=== PATIENT | male | born 1985 | race Caucasian/White ===

== ENCOUNTER 2016-08-15 18:33 | Emergency (ER) | payer OTHER ==
[~2016-08-15] VITALS: Ht 177.8 cm; Wt 125.5 kg
[~2016-08-15 18:33] MED LIST: ALBU18HF INHALATION; ARIP5TAB7 PO; BECL8.7A INH; BENA10TA48 PO; DIPH25CA6 PO; DIVA-16 PO; FAMO20TA18 PO; GLIP-95 PO; IBUP-1542 PO; MTF1000T PO; MUPI22OI2 TOP; PRED20TA PO; SIMV20TA97 PO; [UNRECOGNIZED DRUG - CODE] MC
[2016-08-15 18:55] VITALS: Ht 177.8 cm; Wt 125.5 kg
== END 2016-08-16 01:39 | disposition left against medical advice (07) ==
LOC: E/R 18:33
DX: Z53.21 Procedure and treatment not carried out due to patient leaving prior to being seen by health care provider (principal)
CPT/HCPCS: 82962

== ENCOUNTER 2016-08-23 16:21 | Emergency (ER) | payer OTHER ==
[~2016-08-23] VITALS: Ht 172.7 cm; Wt 100.0 kg
[2016-08-23] MEDS ORDERED: ALBU18HF INHALATION (16:25)
[2016-08-23 16:57] VITALS: Ht 172.7 cm; Wt 100.0 kg
--- NOTE | 2016-08-23 17:22 | ERD ---
ER Documentation Chief Complaint Date/Time DATE: 08/23/16 TIME: 17:20 Chief Complaint COUGH STARTING TODAY AND "FEELING BAD" HPI Patient is a 31-year-old male with diabetes and asthma who presents saying that he needs an inhaler. The patient says "I need a prescription for an inhaler". He said that he ran out of his inhaler yesterday. He has shortness of breath and diarrhea. He denies fevers. He was brought in by ambulance. Upon review of old medical records the patient has multiple visits to the ER for various complaints. He is well-known to myself and to our staff for psychiatric complaints. He does not currently have a primary doctor. ROS All systems reviewed and are negative except as per history of present illness. Medications Home Meds Active Scripts Albuterol Sulfate* (Ventolin HFA*) 18 Gm Hfa.aer.ad, 2 PUFF INHALATION Q4H, #1 INHALER Prov:LOVE ROMERO MD 08/23/16 Albuterol Sulfate* (Ventolin HFA*) 18 Gm Hfa.aer.ad, 2 PUFF INHALATION Q4H, #1 INHALER Prov:JENNIFER ELMORE 07/25/16 Prednisone* (Prednisone*) 20 Mg Tab, 40 MG PO DAILY for 4 Days, TAB Prov:JENNIFER ELMORE 07/25/16 Aripiprazole* (Abilify*) 5 Mg Tab, 5 MG PO DAILY, #10 TAB Prov:MIKE HUERTA DO 07/10/16 Mupirocin* (Bactroban*) 2% -22 Gram Oint...g., 1 APPLIC TOP BID for 7 Days, EA Prov:JERRY INGRAM PA-C 07/08/16 Mupirocin* (Bactroban*) 2% -22 Gram Oint...g., 1 APPLIC TOP BID for 7 Days, #1 TUB Prov:MARIEL COURTNEY MD 03/04/16 Ibuprofen* (Ibuprofen*) 600 Mg Tablet, 600 MG PO Q8 for PAIN AND/OR INFLAMMATION , #30 TAB Prov:MARIEL COURTNEY MD 03/04/16 Clotrimazole (Clotrimazole Powder) 100 Gm Powder, 100 GM MC qday for 7 Days, EA Prov:NOAH GERWAL DO 02/26/16 Reported Medications Beclomethasone Dip* (Qvar 40*) 7.3 Gm Inha, 1 PUFF INH BID, #1 INHALER 02/27/16 Diphenhydramine Hcl* (Diphenhydramine Hcl*) 25 Mg Capsule, 25 MG PO BID Y for ITCHING, CAP 02/27/16 Divalproex Sodium* (Divalproex Sodium*) 500 Mg Tablet.dr, 500 MG PO TID, #90 TAB 02/27/16 Simvastatin* (Zocor*) 20 Mg Tablet, 20 MG PO QHS, #30 TAB 02/27/16 Glipizide* (Glipizide*) 10 Mg Tablet, 10 MG PO DAILY, TAB 02/27/16 Famotidine* (Famotidine*) 20 Mg Tablet, 20 MG PO DAILY, #30 TAB 02/27/16 Benazepril Hcl* (Benazepril Hcl*) 10 Mg Tablet, 10 MG PO DAILY, #30 TAB 02/27/16 Metformin* (Glucophage*) 1,000 Mg Tablet, 1000 MG PO QID, #60 TAB 01/04/16 Allergies Allergies: Coded Allergies: No Known Allergies (Verified Allergy, Mild, 02/27/16) PMhx/Soc History of Surgery: No Anesthesia Reaction: No Hx Neurological Disorder: No Hx Respiratory Disorders: Yes (Asthma) Hx Cardiac Disorders: No Hx Psychiatric Problems: Yes (Schizophrenia ) Hx Miscellaneous Medical Probl: Yes (DM) Hx Alcohol Use: No Hx Substance Use: No Hx Tobacco Use: No Smoking Status: Never smoker FmHx Family History: diabetes Physical Exam Vitals Vital Signs Date Time Temp Pulse Resp B/P Pulse Ox O2 Delivery O2 Flow Rate FiO2 08/23/16 16:57 98.8 116 16 138/88 100 Physical Exam Const: No acute distress Head: Atraumatic Eyes: Normal Conjunctiva ENT: Normal External Ears, Nose and Mouth. Neck: Full range of motion..~ No meningismus. Resp: Clear to auscultation bilaterally, no retractions or accessory muscle use Cardio: Tachycardic rate without murmur Abd: Soft, non tender, non distended. Normal bowel sounds Skin: No petechiae or rashes Back: No midline or flank tenderness Ext: No cyanosis, or edema Neur: Awake and alert Psych: Normal Mood and Affect Results 24 hrs Laboratory Tests Test 08/23/16 16:53 Bedside Glucose 381mg/dL Procedures/MDM Smoking Cessation Therapy: Pt. was lectured for greater than 3 minutes on the health risks of continued smoking and the benefits of cessation. Patient is a 31-year-old male who presents with asthma exacerbation. I do not believe he requires further workup or admission the hospital at this time. He is in no respiratory distress. The patient will be given a prescription for an inhaler. The patient did have an Accu-Chek which showed a sugar of greater than 300 but this point I doubt diabetic ketoacidosis or other serious cause of his hyperglycemia. He has metformin and insulin at home and I told him that he needs to take these as directed by his doctor. He can return for any worsening symptoms. The patient understands the plan is okay for discharge at this time. From a psychiatric standpoint the patient appears stable and is having no suicidal or homicidal ideation. Departure Diagnosis: Primary Impression: Hyperglycemia Additional Impression: Asthma Asthma severity: unspecified severity Asthma complication type: uncomplicated Qualified Code: J45.909 - Uncomplicated asthma, unspecified asthma severity Condition: Fair Patient Instructions: Asthma, Acute (Adult) Referrals: [facility] YOU HAVE RECEIVED A MEDICAL SCREENING EXAM AND THE RESULTS INDICATE THAT YOU DO NOT HAVE A CONDITION THAT REQUIRES URGENT TREATMENT IN THE EMERGENCY DEPARTMENT. FURTHER EVALUATION AND TREATMENT OF YOUR CONDITION CAN WAIT UNTIL YOU ARE SEEN IN YOUR DOCTORS OFFICE WITHIN THE NEXT 1-2 DAYS. IT IS YOUR RESPONSIBILITY TO MAKE AN APPOINTMENT FOR FOLOW-UP CARE. IF YOU HAVE A PRIMARY DOCTOR --you should call your primary doctor and schedule an appointment IF YOU DO NOT HAVE A PRIMARY DOCTOR YOU CAN CALL OUR PHYSICIAN REFERRAL HOTLINE AT IF YOU CAN NOT AFFORD TO SEE A PHYSICIAN YOU CAN CHOSE FROM THE FOLLOWING [facility] [address] [place] [facility] [address] [facility]. [facility] [address] [facility] [address] [facility] [address] [place] [address]. [facility]. [address] Additional Instructions: Call your primary care doctor TOMORROW for an appointment during the next 1-2 days.See the doctor sooner or return here if your condition worsens before your appointment time. LOVE ROMERO MD Aug 23, 2016 17:22
== END 2016-08-23 17:15 | disposition home or self-care (01) ==
LOC: E/R 16:21
DX: E11.65 Type 2 diabetes mellitus with hyperglycemia (principal); J45.901 Unspecified asthma with (acute) exacerbation; Z79.84 Long term (current) use of oral hypoglycemic drugs
CPT/HCPCS: 82962; Z7502; 99281

== ENCOUNTER 2016-08-27 16:20 | Emergency (ER) | payer OTHER ==
[~2016-08-27] VITALS: Ht 175.3 cm; Wt 104.5 kg
[~2016-08-27 16:20] MED LIST changes: -ARIP5TAB7 PO; -BECL8.7A INH; -DIPH25CA6 PO; -FAMO20TA18 PO; -MUPI22OI2 TOP; -PRED20TA PO; +SIMV20TA PO; -SIMV20TA97 PO; -[UNRECOGNIZED DRUG - CODE] MC
[2016-08-27 16:38] VITALS: Ht 175.3 cm; Wt 104.5 kg
[2016-08-27 16:58] LABS: BASOPHILS % 0.5 % (0.0-2.0); EOSINOPHILS # 0.3 10^3/ul (0.0-0.5); EOSINOPHILS % 3.3 % (0.0-7.0); HEMATOCRIT 47.4 % (42.0-52.0); LYMPHOCYTES # 2.6 10^3/ul (0.8-2.9); LYMPHOCYTES % 30.7 % (15.0-51.0); MEAN CORPUSCULAR HGB CONC 33.7 g/dl (32.0-37.0); MEAN CORPUSCULAR VOLUME 83.3 fl (82.0-101.0); MEAN PLATELET VOLUME 9.6 fl (7.4-10.4); MONOCYTE # 0.5 10^3/ul (0.3-0.9); MONOCYTES % 5.9 % (0.0-11.0); NEUTROPHILS % 59.6 % (39.0-77.0); PLATELET COUNT 171 10^3/UL (140-440); RED BLOOD COUNT 5.69 10^6/ul (4.70-6.10); RED CELL DISTRIBUTION WIDTH 13.1 % (11.5-14.5); UNCORRECTED WBC 8.4 10^3/ul (4.8-10.8); WHITE BLOOD COUNT 8.4 10^3/ul (4.8-10.8)
[2016-08-27 16:59] LABS: CONDITION 1
[2016-08-27 17:02] LABS: ADD UMIC NO; ALBUMIN 4.4 g/dl (3.3-4.9); CHLORIDE 96 mmol/L (97-110); SODIUM 136 mmol/L (135-144); URINE BILIRUBIN (Dip) NEGATIVE (NEGATIVE); URINE BLOOD (Dip) NEGATIVE (NEGATIVE); URINE COLOR LT. YELLOW (YELLOW); URINE GLUCOSE (Dip) >=1000 % (NEGATIVE); URINE KETONES (Dip) TRACE (NEGATIVE); URINE LEUKOCYTE ESTERASE (Dip) NEGATIVE (NEGATIVE); URINE NITRITE (Dip) NEGATIVE (NEGATIVE); URINE TOTAL PROTEIN (Dip) NEGATIVE (NEGATIVE); URINE UROBILINOGEN (Dip) 0.2 E.U./dL (0.1-1.0)
[2016-08-27 17:03] LABS: POTASSIUM 4.1 mmol/L (3.5-5.1)
[2016-08-27 17:04] LABS: CREATININE 0.68 mg/dl (0.61-1.24)
[2016-08-27 17:05] LABS: ALANINE AMINOTRANSFERASE 43 IU/L (13-69); ALBUMIN/GLOBULIN RATIO 1.25; ALKALINE PHOSPHATASE 160 IU/L (42-121); ANION GAP 19 (8-16); ASPARTATE AMINO TRANSFERASE 15 IU/L (15-46); BILIRUBIN,INDIRECT 0.3 mg/dl (0-1.1); BILIRUBIN,TOTAL 0.3 mg/dl (0.2-1.3); BLOOD UREA NITROGEN 17 mg/dl (7-20); CALCIUM 9.8 mg/dl (8.4-10.2); CARBON DIOXIDE 25 mmol/L (21-31); GLUCOSE 363 mg/dl (70-220); TOTAL PROTEIN 7.9 g/dl (6.1-8.1)
[2016-08-27 17:06] LABS: ACETAMINOPHEN < 10.0 ug/ml (10.0-30.0); ETHANOL < 10.0 mg/dl; SALICYLATE < 1.0 mg/dl (5.0-30.0)
[2016-08-27 17:12] LABS: BARBITURATES Negative (NEGATIVE); BENZODIAZEPINES Negative (NEGATIVE)
[2016-08-27 17:16] LABS: CANNABINOIDS Negative (NEGATIVE); COCAINE Negative (NEGATIVE)
[2016-08-27 17:17] LABS: OPIATES Negative (NEGATIVE)
--- NOTE | 2016-08-27 21:21 | PSY ---
Date/Time of Note Date/Time of Note DATE: 08/27/16 TIME: 21:08 Psychiatric Subjective Eval Consent Pt consented to telemedicine: Yes Subjective Evaluation Patient location: emergency Chief Complaint: SI Reason for consult: SI History of present illness This is a 31 year old male with a history of polysubstance abuse and alcohol abuse. He has had multiple ED presentations for a variety of reasons, both medical as well as psychiatric. He presents with suicidal ideation with intent and plan, which is to cut himself with a knife. He denies hallucinations or delusions. Although he presents stating that he is suicidal and is seeking inpatient treatment, it appears to me that the patient may be exaggerating his symptoms so that he could be sent to a board and care, as he is having problems with his living situation at home. This may be related to his poor adherence to psychiatric treatment as well as with sobriety. He denies any prior attempt. He reports that his mood often is situational. He does not have a manager case. Medical history Problems Medical Problems: (1) Abrasion Status: Acute (2) Acute psychosis Status: Acute (3) Acute psychosis Status: Acute (4) Acute psychosis Status: Acute (5) Anxiety Status: Acute (6) Asthma Status: Acute (7) Asthma Status: Acute (8) Asthma Status: Acute (9) Balanitis Status: Acute (10) Balanitis Status: Acute (11) Chest wall pain Status: Acute (12) Diabetes Status: Acute (13) Disorder of male genital organs Status: Acute (14) Dystonic drug reaction Status: Acute (15) Encephalopathy Status: Acute (16) Encounter for medication refill Status: Acute (17) Exhibitionism Status: Acute (18) Genital warts Status: Acute (19) Hyperglycemia Status: Acute (20) Hyperglycemia Status: Acute (21) Hyperglycemia Status: Acute (22) Hyperglycemia due to type 2 diabetes mellitus Status: Acute (23) Hyperglycemia without ketosis Status: Acute (24) Influenza Status: Acute (25) Influenza-like symptoms Status: Acute (26) Multiple complaints Status: Acute (27) Pain of male genitalia Status: Acute (28) Pain of male genitalia Status: Acute (29) Patient left after triage Status: Acute (30) Patient left without being seen Status: Acute (31) Patient left without being seen Status: Acute (32) Penile lesion Status: Acute (33) Penile rash Status: Acute (34) Psychological disorder Status: Acute (35) Psychoses Status: Acute (36) Schizophrenia Status: Acute (37) Tension headache Status: Acute (38) Upper respiratory infection Status: Acute (39) URI (upper respiratory infection) Status: Acute (40) Urinary retention Status: Acute Allergies: Coded Allergies: No Known Allergies (Verified Allergy, Mild, 08/23/16) Substance Abuse Substance use: other (The patient has "court mandated" treatment. I am not sure what they are. They may be related to his problems with substance abuse. ) Substance abuse history: Yes Prior substance abuse treatmen: Yes Social History Marital status: single Level of education: 10th Grade DPA/Conservatorship: No Occupation/Snf: disabled Psychiatric Objective Eval Review of Systems: Review of Systems: Not Applicable Constitutional: Normal Eyes: Normal ENT: Normal Neck: Normal Respiratory: Normal Chest/Breast: Normal Cardiovascular: Normal GI: Normal Genitourinary: Normal Skin: Normal Lymphatic: Normal Musculoskeletal: Normal Neurological: Normal Mental Status Examination: Appearance: Groomed Eye Contact: Fair Psychomotor Activity: Normal Behavior: Guarded Speech: Clear AFFECT: Flat, Depressed Mood: Depressed, Anxious, Irritable, Other (Labile) Though Process: Linear Thought Content: Normal Suicidal: Yes On 72 hour hold: No Orientation: x4 Cognition: Alert Insight: Intact Judgement: Intact Attention Span: Intact Laboratory Results Laboratory Tests Test 08/27/16 16:30 08/27/16 16:39 Urine Amphetamines Screen Negative Urine Barbiturates Negative Urine Benzodiazepines Screen Negative Urine Cannabinoids Negative Urine Cocaine Screen Negative Urine Opiates Screen Negative Acetaminophen Level < 10.0ug/ml Alanine Aminotransferase (ALT/SGPT) 43IU/L Albumin 4.4g/dl Albumin/Globulin Ratio 1.25 Alkaline Phosphatase 160IU/L Anion Gap 19 Aspartate Amino Transf (AST/SGOT) 15IU/L Basophils # 0.010^3/ul Basophils % 0.5% Blood Morphology Comment Blood Urea Nitrogen 17mg/dl Calcium Level 9.8mg/dl Carbon Dioxide Level 25mmol/L Chloride Level 96mmol/L Creatinine 0.68mg/dl Direct Bilirubin 0.00mg/dl Eosinophils # 0.310^3/ul Eosinophils % 3.3% Ethyl Alcohol Level < 10.0mg/dl Globulin 3.50g/dl Glucose Level 363mg/dl Hematocrit 47.4% Hemoglobin 16.0g/dl Indirect Bilirubin 0.3mg/dl Lymphocytes # 2.610^3/ul Lymphocytes % 30.7% Mean Corpuscular Hemoglobin 28.0pg Mean Corpuscular Hemoglobin Concent 33.7g/dl Mean Corpuscular Volume 83.3fl Mean Platelet Volume 9.6fl Monocytes # 0.510^3/ul Monocytes % 5.9% Neutrophils # 5.010^3/ul Neutrophils % 59.6% Nucleated Red Blood Cells # 0.010^3/ul Nucleated Red Blood Cells % 0.0/100WBC Platelet Count 25591^3/UL Potassium Level 4.1mmol/L Red Blood Count 5.6910^6/ul Red Cell Distribution Width 13.1% Salicylates Level < 1.0mg/dl Sodium Level 136mmol/L Total Bilirubin 0.3mg/dl Total Protein 7.9g/dl Urine Bilirubin NEGATIVE Urine Clarity CLEAR Urine Color LT. YELLOW Urine Glucose >=1000% Urine Hemoglobin NEGATIVE Urine Ketones TRACE Urine Leukocyte Esterase NEGATIVE Urine Nitrite NEGATIVE Urine Specific [place] 1.010 Urine Total Protein NEGATIVE Urine Urobilinogen 0.2 E.U./dL Urine pH 6.0 White Blood Count 8.410^3/ul Assessment and Plan Assessment/Diagnosis [place] I: F43.21 Adjustment disorder with mixed emotional features. F15.20 Methamphetamine dependence (by history) F10.20 Alcohol dependence. 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 He has expressed intent as well as a plan. He would benefit from having case management to develop a behavioral program to reduce the frequency of ED visits. Further, the family would benefit from family therapy as well as education in motivational interviewing techniques to assist the patient's lack of insight regarding his problems with substance abuse. He should be admitted voluntarily. SANTOS GRAHAM MD Aug 27, 2016 21:19
[2016-08-27] MEDS ORDERED: INSULIN LISPRO 100 UNIT/ML VIAL SC STA (23:36)
--- NOTE | 2016-08-27 23:44 | ERA ---
ER Documentation Chief Complaint Date/Time DATE: 08/27/16 TIME: 23:39 Chief Complaint SI HPI This 31-year-old male states that he has suicidal also without a specific plan. Will not give a reason why and states that he would like to be admitted to specific facilities familiar with. He last filled taking history and states that we have to admit him because he said he was suicidal. He denies any physical pain or symptoms currently. ROS All systems reviewed and are negative except as per history of present illness. Medications Home Meds Active Scripts Albuterol Sulfate* (Ventolin HFA*) 18 Gm Hfa.aer.ad, 2 PUFF INHALATION Q4H, #1 INHALER Prov:LOVE ROMERO MD 08/23/16 Ibuprofen* (Ibuprofen*) 600 Mg Tablet, 600 MG PO Q8 for PAIN AND/OR INFLAMMATION , #30 TAB Prov:MARIEL COURTNEY MD 03/04/16 Reported Medications Divalproex Sodium* (Divalproex Sodium*) 500 Mg Tablet.dr, 500 MG PO TID, #90 TAB 02/27/16 Simvastatin* (Zocor*) 20 Mg Tablet, 20 MG PO QHS, #30 TAB 02/27/16 Glipizide* (Glipizide*) 10 Mg Tablet, 10 MG PO DAILY, TAB 02/27/16 Benazepril Hcl* (Benazepril Hcl*) 10 Mg Tablet, 10 MG PO DAILY, #30 TAB 02/27/16 Metformin* (Glucophage*) 1,000 Mg Tablet, 1000 MG PO QID, #60 TAB 01/04/16 Discontinued Reported Medications Beclomethasone Dip* (Qvar 40*) 7.3 Gm Inha, 1 PUFF INH BID, #1 INHALER 02/27/16 Diphenhydramine Hcl* (Diphenhydramine Hcl*) 25 Mg Capsule, 25 MG PO BID Y for ITCHING, CAP 02/27/16 Famotidine* (Famotidine*) 20 Mg Tablet, 20 MG PO DAILY, #30 TAB 02/27/16 Discontinued Scripts Albuterol Sulfate* (Ventolin HFA*) 18 Gm Hfa.aer.ad, 2 PUFF INHALATION Q4H, #1 INHALER Prov:JENNIFER ELMORE 07/25/16 Prednisone* (Prednisone*) 20 Mg Tab, 40 MG PO DAILY for 4 Days, TAB Prov:JENNIFER ELMORESapna 07/25/16 Aripiprazole* (Abilify*) 5 Mg Tab, 5 MG PO DAILY, #10 TAB Prov:MIKE HUERTA DO 07/10/16 Mupirocin* (Bactroban*) 2% -22 Gram Oint...g., 1 APPLIC TOP BID for 7 Days, EA Prov:JERRY INGRAM PA-C 07/08/16 Mupirocin* (Bactroban*) 2% -22 Gram Oint...g., 1 APPLIC TOP BID for 7 Days, #1 TUB Prov:MARIEL COURTNEY MD 03/04/16 Clotrimazole (Clotrimazole Powder) 100 Gm Powder, 100 GM MC qday for 7 Days, EA Prov:NOAH GREWAL DO 02/26/16 Allergies Allergies: Coded Allergies: No Known Allergies (Verified Allergy, Mild, 08/23/16) PMhx/Soc Medical and Surgical Hx: pt denies Surgical Hx History of Surgery: No Anesthesia Reaction: No Hx Neurological Disorder: No Hx Respiratory Disorders: Yes (Asthma) Hx Cardiac Disorders: No Hx Psychiatric Problems: Yes (Schizophrenia ) Hx Miscellaneous Medical Probl: Yes (DM) Hx Alcohol Use: No Hx Substance Use: No Hx Tobacco Use: No Smoking Status: Never smoker Physical Exam Vitals Vital Signs Date Time Temp Pulse Resp B/P Pulse Ox O2 Delivery O2 Flow Rate FiO2 08/27/16 16:38 98.0 66 18 140/80 100 Physical Exam Const: [] No distress, obese Head: Atraumatic Eyes: Normal Conjunctiva ENT: Normal External Ears, Nose and Mouth. Neck: Full range of motion..~ No meningismus. Resp: Clear to auscultation bilaterally Cardio: Regular rate and rhythm, no murmurs Abd: Soft, non tender, non distended. Normal bowel sounds Skin: No petechiae or rashes Back: No midline or flank tenderness Ext: No cyanosis, or edema Neur: Awake and alert and oriented 3, no focal deficits Psych: Normal Mood and Affect Result Diagram: 08/27/16 1639 08/27/16 1639 Results 24 hrs Laboratory Tests Test 08/27/16 16:30 08/27/16 16:39 Urine Amphetamines Screen Negative Urine Barbiturates Negative Urine Benzodiazepines Screen Negative Urine Cannabinoids Negative Urine Cocaine Screen Negative Urine Opiates Screen Negative Acetaminophen Level < 10.0ug/ml Alanine Aminotransferase (ALT/SGPT) 43IU/L Albumin 4.4g/dl Albumin/Globulin Ratio 1.25 Alkaline Phosphatase 160IU/L Anion Gap 19 Aspartate Amino Transf (AST/SGOT) 15IU/L Basophils # 0.010^3/ul Basophils % 0.5% Blood Morphology Comment Blood Urea Nitrogen 17mg/dl Calcium Level 9.8mg/dl Carbon Dioxide Level 25mmol/L Chloride Level 96mmol/L Creatinine 0.68mg/dl Direct Bilirubin 0.00mg/dl Eosinophils # 0.310^3/ul Eosinophils % 3.3% Ethyl Alcohol Level < 10.0mg/dl Globulin 3.50g/dl Glucose Level 363mg/dl Hematocrit 47.4% Hemoglobin 16.0g/dl Indirect Bilirubin 0.3mg/dl Lymphocytes # 2.610^3/ul Lymphocytes % 30.7% Mean Corpuscular Hemoglobin 28.0pg Mean Corpuscular Hemoglobin Concent 33.7g/dl Mean Corpuscular Volume 83.3fl Mean Platelet Volume 9.6fl Monocytes # 0.510^3/ul Monocytes % 5.9% Neutrophils # 5.010^3/ul Neutrophils % 59.6% Nucleated Red Blood Cells # 0.010^3/ul Nucleated Red Blood Cells % 0.0/100WBC Platelet Count 78564^3/UL Potassium Level 4.1mmol/L Red Blood Count 5.6910^6/ul Red Cell Distribution Width 13.1% Salicylates Level < 1.0mg/dl Sodium Level 136mmol/L Total Bilirubin 0.3mg/dl Total Protein 7.9g/dl Urine Bilirubin NEGATIVE Urine Clarity CLEAR Urine Color LT. YELLOW Urine Glucose >=1000% Urine Hemoglobin NEGATIVE Urine Ketones TRACE Urine Leukocyte Esterase NEGATIVE Urine Nitrite NEGATIVE Urine Specific [place] 1.010 Urine Total Protein NEGATIVE Urine Urobilinogen 0.2 E.U./dL Urine pH 6.0 White Blood Count 8.410^3/ul Procedures/MDM 31-year-old male with hyperglycemia secondary to by diabetes. Also states he is having suicidal ideations. He does not believe him she is a frequent flyer here but medicolegally I am giving the benefit of the doubt because a person's life is as stated.. He almost goes right out and says that he is lying but that we have to admit him because he said the word "suicidal". 4 Khalida tompkins is correct. He was given 8 units of subcutaneous lispro insulin for his hyperglycemia. Tele psychiatrist agrees with my assessment and he thinks the patient is probably malingering but i stating he has suicidal deviations. He is awaiting social work evaluation per psychiatry recommendations. If he has not changed his mind by 10 is evaluated by social service assistant this. They will be laced in a psychiatric facility. His sugar will be rechecked if the sugars normally see no condition medically to prevent him from psychiatric admission. Departure Diagnosis: Primary Impression: Suicidal ideation Additional Impressions: Hyperglycemia Hyperglycemia due to type 2 diabetes mellitus Condition: Stable MIKE HUERTA DO Aug 27, 2016 23:44
[2016-08-28] MEDS ORDERED: INSULIN ASPART [NOVOLOG] 3 ML PEN SC SCH ×2 (00:30)
[2016-08-28 07:14] VITALS: BP 123/78; PULSE 87; RESP 18; TEMP 98.5
== END 2016-08-28 07:14 | disposition home or self-care (01) ==
LOC: E/R 16:20
DX: E11.65 Type 2 diabetes mellitus with hyperglycemia (principal); R45.851 Suicidal ideations; J45.909 Unspecified asthma, uncomplicated; E66.9 Obesity, unspecified; Z68.34 Body mass index [BMI] 34.0-34.9, adult; Z79.84 Long term (current) use of oral hypoglycemic drugs
CPT/HCPCS: 80053; 80306; 80307; 81003; 82962; 85025; J1815; 36415; 96372

== ENCOUNTER 2016-11-29 21:42 | Emergency (ER) | payer SELFPAY ==
[~2016-11-29] VITALS: Ht 177.8 cm; Wt 134.0 kg
[~2016-11-29 21:42] MED LIST changes: +ACET500C5 PO; +ACYC800T57 PO; +ADV10050 INHALATION; +ALBU8.5H3 INH; +ALBU8.5H5 INH; +ALPR0.25 PO; +ARIP5TAB7 PO; +BECL8.7A INH; +CLOT30CR24 TOP; +DIPH25CA6 PO; +DIVA500T7 PO; +FAMO20TA18 PO; +FLUT16SP17 NASAL; +GLYB5TAB3 PO; +GUAI118L94 PO; +IMIQ1CRE14 TOP; +IPRA14.76; +LORA10TA3 PO; +MONT10TA24 PO; +MUPI22OI2 TOP; +PRED20TA PO; +UDROBDM PO; +UNKNOWN MEDS; +[UNRECOGNIZED DRUG - CODE] MC
[2016-11-29 21:48] VITALS: Ht 177.8 cm; Wt 134.0 kg
== END 2016-11-29 23:11 | disposition left against medical advice (07) ==
LOC: E/R 21:42
DX: Z53.21 Procedure and treatment not carried out due to patient leaving prior to being seen by health care provider (principal)

== ENCOUNTER 2016-11-30 00:34 | Emergency (ER) | payer OTHER ==
[~2016-11-30] VITALS: Ht 177.8 cm; Wt 132.0 kg
[~2016-11-30 00:34] MED LIST changes: -ACET500C5 PO; -ACYC800T57 PO; -ADV10050 INHALATION; -ALBU8.5H3 INH; -ALBU8.5H5 INH; -ALPR0.25 PO; -ARIP5TAB7 PO; -BECL8.7A INH; -CLOT30CR24 TOP; -DIPH25CA6 PO; -DIVA500T7 PO; -FAMO20TA18 PO; -FLUT16SP17 NASAL; -GLYB5TAB3 PO; -GUAI118L94 PO; -IMIQ1CRE14 TOP; -IPRA14.76; -LORA10TA3 PO; -MONT10TA24 PO; -MUPI22OI2 TOP; -PRED20TA PO; -UDROBDM PO; -UNKNOWN MEDS; -[UNRECOGNIZED DRUG - CODE] MC
[2016-11-30 00:36] VITALS: Ht 177.8 cm; Wt 132.0 kg
--- NOTE | 2016-11-30 00:50 | ERA ---
ER Documentation Chief Complaint Date/Time DATE: 11/30/16 TIME: 00:50 Chief Complaint suicidal attempt- cocaine overdose (JENNIFER ELMORE) HPI This is a 31-year-old male says he tried to overdose with cocaine and is feeling suicidal. Denies any fevers or chills. Denies any suicidal homicidal ideation. Denies any auditory or visual hallucinations. (JENNIFER ELMORE) ROS All systems reviewed and are negative except as per history of present illness. (JENNIFER ELMORE) Medications Home Meds Active Scripts Albuterol Sulfate* (Ventolin HFA*) 18 Gm Hfa.aer.ad, 2 PUFF INHALATION Q4H, #1 INHALER Prov:LOVE ROMERO MD 08/23/16 Ibuprofen* (Ibuprofen*) 600 Mg Tablet, 600 MG PO Q8 for PAIN AND/OR INFLAMMATION , #30 TAB Prov:MARIEL COURTNEY MD 03/04/16 Reported Medications Divalproex Sodium* (Divalproex Sodium*) 500 Mg Tablet.dr, 500 MG PO TID, #90 TAB 02/27/16 Simvastatin* (Zocor*) 20 Mg Tablet, 20 MG PO QHS, #30 TAB 02/27/16 Glipizide* (Glipizide*) 10 Mg Tablet, 10 MG PO DAILY, TAB 02/27/16 Benazepril Hcl* (Benazepril Hcl*) 10 Mg Tablet, 10 MG PO DAILY, #30 TAB 02/27/16 Metformin* (Glucophage*) 1,000 Mg Tablet, 1000 MG PO QID, #60 TAB 01/04/16 Allergies Allergies: Coded Allergies: No Known Allergies (Verified Allergy, Mild, 08/23/16) PMhx/Soc History of Surgery: No Anesthesia Reaction: No Hx Neurological Disorder: No Hx Respiratory Disorders: Yes (Asthma) Hx Cardiac Disorders: No Hx Psychiatric Problems: Yes (Schizophrenia ) Hx Miscellaneous Medical Probl: Yes (DM) Hx Alcohol Use: No Hx Substance Use: No Hx Tobacco Use: No (JENNIFER ELMORE) Physical Exam Vitals Vital Signs Date Time Temp Pulse Resp B/P Pulse Ox O2 Delivery O2 Flow Rate FiO2 11/30/16 08:29 98.4 91 14 140/81 99 11/30/16 06:05 79 16 122/56 94 Room Air 11/30/16 00:36 97.7 88 20 175/80 98 (BRADLEYMIKEFAROOQ VAZQUEZ) Physical Exam Const: [] Head: Atraumatic Eyes: Normal Conjunctiva ENT: Normal External Ears, Nose and Mouth. Neck: Full range of motion..~ No meningismus. Resp: Clear to auscultation bilaterally Cardio: Regular rate and rhythm, no murmurs Abd: Soft, non tender, non distended. Normal bowel sounds Skin: No petechiae or rashes Back: No midline or flank tenderness Ext: No cyanosis, or edema Neur: Awake and alert Psych: Normal Mood and Affect (JENNIFER ELMORE) Result Diagram: 11/30/16 01111/30/16 011 Results 24 hrs Laboratory Tests Test 11/30/16 00:57 11/30/16 01:17 Urine Color LT. YELLOW Urine Clarity CLEAR Urine pH 5.5 Urine Specific [place] <=1.005 Urine Ketones NEGATIVE Urine Nitrite NEGATIVE Urine Bilirubin NEGATIVE Urine Urobilinogen 0.2 E.U./dL Urine Leukocyte Esterase NEGATIVE Urine Hemoglobin NEGATIVE Urine Glucose >=1000% Urine Total Protein NEGATIVE Urine Opiates Screen Negative Urine Barbiturates Negative Urine Amphetamines Screen Negative Urine Benzodiazepines Screen Negative Urine Cocaine Screen Positive Urine Cannabinoids Negative White Blood Count 8.110^3/ul Red Blood Count 5.4410^6/ul Hemoglobin 15.3g/dl Hematocrit 44.7% Mean Corpuscular Volume 82.2fl Mean Corpuscular Hemoglobin 28.1pg Mean Corpuscular Hemoglobin Concent 34.2g/dl Red Cell Distribution Width 12.1% Platelet Count 69077^3/UL Mean Platelet Volume 10.8fl Neutrophils % 65.1% Lymphocytes % 26.7% Monocytes % 6.0% Eosinophils % 1.6% Basophils % 0.2% Nucleated Red Blood Cells % 0.0/100WBC Neutrophils # 5.310^3/ul Lymphocytes # 2.210^3/ul Monocytes # 0.510^3/ul Eosinophils # 0.110^3/ul Basophils # 0.010^3/ul Nucleated Red Blood Cells # 0.010^3/ul Sodium Level 134mmol/L Potassium Level 3.8mmol/L Chloride Level 96mmol/L Carbon Dioxide Level 25mmol/L Anion Gap 17 Blood Urea Nitrogen 8mg/dl Creatinine 0.66mg/dl Glucose Level 267mg/dl Calcium Level 9.4mg/dl Total Bilirubin 0.8mg/dl Direct Bilirubin 0.00mg/dl Indirect Bilirubin 0.8mg/dl Aspartate Amino Transf (AST/SGOT) 29IU/L Alanine Aminotransferase (ALT/SGPT) 50IU/L Alkaline Phosphatase 102IU/L Total Protein 7.9g/dl Albumin 4.7g/dl Globulin 3.20g/dl Albumin/Globulin Ratio 1.46 Salicylates Level < 1.0mg/dl Acetaminophen Level < 10.0ug/ml Ethyl Alcohol Level < 10.0mg/dl Current Medications Medications (Trade) Dose Ordered Sig/Apryl Route PRN Reason Start Time Stop Time Status Last Admin Dose Admin Lorazepam (Ativan) 1 mg ONCE ONCE PO 11/30/16 01:00 11/30/16 01:01 DC 11/30/16 01:42 (MIKE HUERTA DO) Procedures/MDM Patient's behavioral symptoms have stabilized while in the department. Patient is medically cleared and appropriate for psychiatric evaluation and work up. No e/o neurologic, toxic, infectious, or metabolic cause. (JENNIFER ELMORE) Total psychiatry reevaluated this patient is no longer suicidal. This is likely result of the cocaine and he reported using. Spoke with him myself and he says he has no thoughts of harming himself or others. Is currently on Abilify and is stable and instructed usually. Psychiatrist recommends releasing hold. I'm discharging the patient instructions to his psychiatrist in the next day. (MIKE HUERTA DO) Departure Diagnosis: Primary Impression: Suicidal ideation Condition: Stable JENNIFER ELMORE Nov 30, 2016 00:50 MIKE HUERTA DO Nov 30, 2016 11:06
[2016-11-30] MEDS ORDERED: LORAZEPAM 1 MG TAB PO ONE (01:00)
[2016-11-30 01:19] LABS: ADD UMIC NO; URINE BILIRUBIN (Dip) NEGATIVE (NEGATIVE); URINE BLOOD (Dip) NEGATIVE (NEGATIVE); URINE COLOR LT. YELLOW (YELLOW); URINE GLUCOSE (Dip) >=1000 % (NEGATIVE); URINE KETONES (Dip) NEGATIVE (NEGATIVE); URINE LEUKOCYTE ESTERASE (Dip) NEGATIVE (NEGATIVE); URINE NITRITE (Dip) NEGATIVE (NEGATIVE); URINE TOTAL PROTEIN (Dip) NEGATIVE (NEGATIVE); URINE UROBILINOGEN (Dip) 0.2 E.U./dL (0.1-1.0)
[2016-11-30 01:27] LABS: ADD SCAN DIFF NO
[2016-11-30 01:38] LABS: ALBUMIN 4.7 g/dl (3.3-4.9)
[2016-11-30 01:39] LABS: CHLORIDE 96 mmol/L (97-110); POTASSIUM 3.8 mmol/L (3.5-5.1); SODIUM 134 mmol/L (135-144)
--- NOTE | 2016-11-30 01:39 | PSY ---
Date/Time of Note Date/Time of Note DATE: 11/30/16 TIME: : Psychiatric Subjective Eval Consent Pt consented to telemedicine: Yes Subjective Evaluation Patient location: emergency Chief Complaint: suicidal attempt- cocaine overdose Reason for consult: suicidal History of present illness patient is a 31 yo male with PPH Of schizophrenia who came to the ER due to feeling suicidal, he states that he used cocaine today and then started to feel sick, he has been feeling suicidal for about 2 days, he states that he wants to OD on pills or jump into traffic, he has been feeling depressed, hopeless and helpless for weeks due to financial harship and no support , he has been hearing voices telling him to hurt himself ,and feeling paranoid with problem sleeping and decrease appetite for the past few days, denies using cocaine before. no HI. Past psychiatric history past suicdal attempt yes Hospitalization: yes Family History denies Medical history Problems Medical Problems: (1) Abrasion Status: Acute (2) Acute psychosis Status: Acute (3) Acute psychosis Status: Acute (4) Acute psychosis Status: Acute (5) Anxiety Status: Acute (6) Asthma Status: Acute (7) Asthma Status: Acute (8) Asthma Status: Acute (9) Balanitis Status: Acute (10) Balanitis Status: Acute (11) Chest wall pain Status: Acute (12) Diabetes Status: Acute (13) Disorder of male genital organs Status: Acute (14) Dystonic drug reaction Status: Acute (15) Encephalopathy Status: Acute (16) Encounter for medication refill Status: Acute (17) Exhibitionism Status: Acute (18) Genital warts Status: Acute (19) Hyperglycemia Status: Acute (20) Hyperglycemia Status: Acute (21) Hyperglycemia Status: Acute (22) Hyperglycemia due to type 2 diabetes mellitus Status: Acute (23) Hyperglycemia due to type 2 diabetes mellitus Status: Acute (24) Hyperglycemia without ketosis Status: Acute (25) Influenza Status: Acute (26) Influenza-like symptoms Status: Acute (27) Multiple complaints Status: Acute (28) Pain of male genitalia Status: Acute (29) Pain of male genitalia Status: Acute (30) Patient left after triage Status: Acute (31) Patient left after triage Status: Acute (32) Patient left without being seen Status: Acute (33) Patient left without being seen Status: Acute (34) Penile lesion Status: Acute (35) Penile rash Status: Acute (36) Psychological disorder Status: Acute (37) Psychoses Status: Acute (38) Schizophrenia Status: Acute (39) Suicidal ideation Status: Acute (40) Suicidal ideation Status: Acute (41) Tension headache Status: Acute (42) Upper respiratory infection Status: Acute (43) URI (upper respiratory infection) Status: Acute (44) Urinary retention Status: Acute Allergies: Coded Allergies: No Known Allergies (Verified Allergy, Mild, 08/23/16) Substance Abuse Substance use: No known substance abuse Social History Marital status: single Level of education: hs DPA/Conservatorship: No Occupation/Custodial: unemployed Psychiatric Objective Eval Review of Systems: Review of Systems: Not Applicable Physical Examination: Physical Examination: Applicable Sleep: Insomnia Energy: Decreased Interest: Decreased Mental Status Examination: Appearance: Groomed, Poor Hygiene Eye Contact: Good Psychomotor Activity: Normal Behavior: Cooperative Speech: Clear AFFECT: Depressed Mood: Depressed Though Process: Linear Thought Content: Hallucinations Suicidal: Yes Orientation: x3 Cognition: Alert Insight: Impared Judgement: Impared Attention Span: Intact Laboratory Results Laboratory Tests Test 11/30/16 00:57 Urine Color LT. YELLOW Urine Clarity CLEAR Urine pH 5.5 Urine Specific [place] <=1.005 Urine Ketones NEGATIVE Urine Nitrite NEGATIVE Urine Bilirubin NEGATIVE Urine Urobilinogen 0.2 E.U./dL Urine Leukocyte Esterase NEGATIVE Urine Hemoglobin NEGATIVE Urine Glucose >=1000% Urine Total Protein NEGATIVE Assessment and Plan Assessment/Diagnosis [place]te[place] I: psychosis nos mood do nos Lawtey II: deferred Lawtey III: as per record Lawtey IV: poor social support Lawtey V: gaf 20 Recommendation/Plan Medication Management risperdal 2 mg po bid ativan 1 mg po bid Follow-up/Disposition Please admit patient on unvoluntary status due to Danger to self, In my opinion, patient currently MEETS criterion for inpatient care and CANNOT be safely treated at a lower level of care today as evidenced by the following risk factors: Current and Recent Suicidal Ideation Previous suicide attempt and severe self-destructive behavior Intense feelings of hopelessness and lack of future orientation. Significant recent DETERIORATION in function, behavior and thought processes Command hallucinations with violent content Non-Compliance with Outpatient Treatment Patient has failed outpatient and requires further inpatient assessment Medication changes require observation unavailable at a lower level of care. [id number] Recommendation: POLINA Monae MD Nov 30, 2016 01:39
[2016-11-30 01:41] LABS: ALANINE AMINOTRANSFERASE 50 IU/L (13-69); ALBUMIN/GLOBULIN RATIO 1.46; ALKALINE PHOSPHATASE 102 IU/L (42-121); ANION GAP 17 (8-16); ASPARTATE AMINO TRANSFERASE 29 IU/L (15-46); BILIRUBIN,INDIRECT 0.8 mg/dl (0-1.1); BILIRUBIN,TOTAL 0.8 mg/dl (0.2-1.3); BLOOD UREA NITROGEN 8 mg/dl (7-20); CARBON DIOXIDE 25 mmol/L (21-31); CREATININE 0.66 mg/dl (0.61-1.24); GLUCOSE 267 mg/dl (70-220); TOTAL PROTEIN 7.9 g/dl (6.1-8.1)
[2016-11-30 01:42] LABS: CALCIUM 9.4 mg/dl (8.4-10.2)
[2016-11-30 01:43] LABS: COCAINE Positive (NEGATIVE)
[2016-11-30 01:45] LABS: ACETAMINOPHEN < 10.0 ug/ml (10.0-30.0); ETHANOL < 10.0 mg/dl; SALICYLATE < 1.0 mg/dl (5.0-30.0)
[2016-11-30 01:45] LABS: BARBITURATES Negative (NEGATIVE); BENZODIAZEPINES Negative (NEGATIVE); CANNABINOIDS Negative (NEGATIVE); OPIATES Negative (NEGATIVE)
[2016-11-30 02:00] LABS: BASOPHILS % 0.2 % (0.0-2.0); EOSINOPHILS # 0.1 10^3/ul (0.0-0.5); EOSINOPHILS % 1.6 % (0.0-7.0); HEMATOCRIT 44.7 % (42.0-52.0); HEMOGLOBIN 15.3 g/dl (14.0-18.0); LYMPHOCYTES # 2.2 10^3/ul (0.8-2.9); LYMPHOCYTES % 26.7 % (15.0-51.0); MEAN CORPUSCULAR HEMOGLOBIN 28.1 pg (29.0-33.0); MEAN CORPUSCULAR HGB CONC 34.2 g/dl (32.0-37.0); MEAN CORPUSCULAR VOLUME 82.2 fl (82.0-101.0); MEAN PLATELET VOLUME 10.8 fl (7.4-10.4); MONOCYTE # 0.5 10^3/ul (0.3-0.9); NEUTROPHIL # 5.3 10^3/ul (1.6-7.5); NEUTROPHILS % 65.1 % (39.0-77.0); PLATELET COUNT 224 10^3/UL (140-415); RED BLOOD COUNT 5.44 10^6/ul (4.70-6.10); RED CELL DISTRIBUTION WIDTH 12.1 % (11.5-14.5); WHITE BLOOD COUNT 8.1 10^3/ul (4.8-10.8)
--- NOTE | 2016-11-30 10:40 | PSY ---
Date/Time of Note Date/Time of Note DATE: 11/30/16 TIME: 09:14 Psychiatric Subjective Eval Subjective Evaluation Patient location: emergency Chief Complaint: suicidal attempt- cocaine overdose Reason for consult: suicidal History of present illness This is a 31 year old male who presented to the ED with complaints of suicidal ideation with intent and plan, which was to run into traffic. He was assessed by Dr. Lawson at 1:30 am. He has since recovered from the effects of cocaine, and now denies suicidal ideation and wishes to be picked up by his father and go home. He was seen and assessed by a social work program coordinator who shared to the nurse that he denies suicidal ideation and no longer meets 5150 criteria. The treating nurse also informed me that after waking up, the patient stated that he was feeling better. A psychiatric consult was requested to reassess the patient. When I interviewed the patient, he was focused on going home and denied any psychiatric symptoms. He states that he has been treated for schizophrenia which has been stable since he has been taking Abilify Maintena monthly. He said that this was his first time using cocaine. He expressed no interest in discussing about his substance use history. Past Psychiatric Histrory: States that he has been treated for schizophrenia most of his adult life. He has been hospitalized on several occasions. He currently is being prescribed Abilify Maintena. He denies any significant side effects. Medical History: Non contributory ROS: Negative. Mental Status Exam: This is a 31 year old male in no acute distress of normal stature and appears his stated age. His speech is spontaneous and goal directed. He denies suicidal or homicidal ideation, intent or plan. He denies hallucinations or delusions. His mood is euthymic. His affect is guarded, flat and restricted. His thought process is topical, logical and coherent. His insight and judgment is limited but not grossly impaired. ' Impression: F14.929 Cocaine intoxication. F20.9 Schizophrenia unspecified The patient no longer is suicidal and is cleared psychiatrically for discharge. He does not present as an imminent risk for harm to himself or others. Hospitalization: yes Medical history Problems Medical Problems: (1) Abrasion Status: Acute (2) Acute psychosis Status: Acute (3) Acute psychosis Status: Acute (4) Acute psychosis Status: Acute (5) Anxiety Status: Acute (6) Asthma Status: Acute (7) Asthma Status: Acute (8) Asthma Status: Acute (9) Balanitis Status: Acute (10) Balanitis Status: Acute (11) Chest wall pain Status: Acute (12) Diabetes Status: Acute (13) Disorder of male genital organs Status: Acute (14) Dystonic drug reaction Status: Acute (15) Encephalopathy Status: Acute (16) Encounter for medication refill Status: Acute (17) Exhibitionism Status: Acute (18) Genital warts Status: Acute (19) Hyperglycemia Status: Acute (20) Hyperglycemia Status: Acute (21) Hyperglycemia Status: Acute (22) Hyperglycemia due to type 2 diabetes mellitus Status: Acute (23) Hyperglycemia due to type 2 diabetes mellitus Status: Acute (24) Hyperglycemia without ketosis Status: Acute (25) Influenza Status: Acute (26) Influenza-like symptoms Status: Acute (27) Multiple complaints Status: Acute (28) Pain of male genitalia Status: Acute (29) Pain of male genitalia Status: Acute (30) Patient left after triage Status: Acute (31) Patient left after triage Status: Acute (32) Patient left without being seen Status: Acute (33) Patient left without being seen Status: Acute (34) Penile lesion Status: Acute (35) Penile rash Status: Acute (36) Psychological disorder Status: Acute (37) Psychoses Status: Acute (38) Schizophrenia Status: Acute (39) Suicidal ideation Status: Acute (40) Suicidal ideation Status: Acute (41) Tension headache Status: Acute (42) Upper respiratory infection Status: Acute (43) URI (upper respiratory infection) Status: Acute (44) Urinary retention Status: Acute Allergies: Coded Allergies: No Known Allergies (Verified Allergy, Mild, 08/23/16) Social History Marital status: single Level of education: hs DPA/Conservatorship: No Occupation/Fdc: unemployed Psychiatric Objective Eval Review of Systems: Review of Systems: Not Applicable Constitutional: Normal Eyes: Normal ENT: Normal Neck: Normal Respiratory: Normal Chest/Breast: Normal Cardiovascular: Normal GI: Normal Genitourinary: Normal Skin: Normal Lymphatic: Normal Musculoskeletal: Normal Neurological: Normal Physical Examination: Physical Examination: Not Applicable Energy: Adequate Interest: Adequate Mental Status Examination: Eye Contact: Fair Psychomotor Activity: Normal Behavior: Cooperative, Guarded Speech: Clear AFFECT: Appropriate, Flat, Constricted, Guarded Mood: Other (Euthymic) Though Process: Linear Thought Content: Normal Suicidal: No Homicidal: No On 72 hour hold: No Orientation: x4 Cognition: Alert Insight: Mild Judgement: Mild Attention Span: Intact Laboratory Results Laboratory Tests Test 11/30/16 00:57 11/30/16 01:17 Urine Color LT. YELLOW Urine Clarity CLEAR Urine pH 5.5 Urine Specific [place] <=1.005 Urine Ketones NEGATIVE Urine Nitrite NEGATIVE Urine Bilirubin NEGATIVE Urine Urobilinogen 0.2 E.U./dL Urine Leukocyte Esterase NEGATIVE Urine Hemoglobin NEGATIVE Urine Glucose >=1000% Urine Total Protein NEGATIVE Urine Opiates Screen Negative Urine Barbiturates Negative Urine Amphetamines Screen Negative Urine Benzodiazepines Screen Negative Urine Cocaine Screen Positive Urine Cannabinoids Negative White Blood Count 8.110^3/ul Red Blood Count 5.4410^6/ul Hemoglobin 15.3g/dl Hematocrit 44.7% Mean Corpuscular Volume 82.2fl Mean Corpuscular Hemoglobin 28.1pg Mean Corpuscular Hemoglobin Concent 34.2g/dl Red Cell Distribution Width 12.1% Platelet Count 33905^3/UL Mean Platelet Volume 10.8fl Neutrophils % 65.1% Lymphocytes % 26.7% Monocytes % 6.0% Eosinophils % 1.6% Basophils % 0.2% Nucleated Red Blood Cells % 0.0/100WBC Neutrophils # 5.310^3/ul Lymphocytes # 2.210^3/ul Monocytes # 0.510^3/ul Eosinophils # 0.110^3/ul Basophils # 0.010^3/ul Nucleated Red Blood Cells # 0.010^3/ul Sodium Level 134mmol/L Potassium Level 3.8mmol/L Chloride Level 96mmol/L Carbon Dioxide Level 25mmol/L Anion Gap 17 Blood Urea Nitrogen 8mg/dl Creatinine 0.66mg/dl Glucose Level 267mg/dl Calcium Level 9.4mg/dl Total Bilirubin 0.8mg/dl Direct Bilirubin 0.00mg/dl Indirect Bilirubin 0.8mg/dl Aspartate Amino Transf (AST/SGOT) 29IU/L Alanine Aminotransferase (ALT/SGPT) 50IU/L Alkaline Phosphatase 102IU/L Total Protein 7.9g/dl Albumin 4.7g/dl Globulin 3.20g/dl Albumin/Globulin Ratio 1.46 Salicylates Level < 1.0mg/dl Acetaminophen Level < 10.0ug/ml Ethyl Alcohol Level < 10.0mg/dl Assessment and Plan Assessment/Diagnosis Winston I: F20.9 Schizophrenia F14.929 Cocaine intoxication [place] II: deferred Winston III: no medical diagnosis Winston IV: problems with finances Winston V: 45 Recommendation/Plan Medication Management He is stable on Abilify Maintena. Follow-up/Disposition with own psychiatrist. Discharge to self [id number] Recommendation: Release Hold (I don't believe he is on a hold. ) SANTOS GRAHAM MD Nov 30, 2016 10:37
[2016-11-30 11:20] VITALS: BP 134/72; PULSE 82; RESP 16; TEMP 97.5
== END 2016-11-30 11:20 | disposition home or self-care (01) ==
LOC: E/R 00:34
DX: R45.851 Suicidal ideations (principal); E11.9 Type 2 diabetes mellitus without complications; J45.909 Unspecified asthma, uncomplicated; Z79.84 Long term (current) use of oral hypoglycemic drugs
CPT/HCPCS: 80053; 80306; 80307; 81003; 85025; Z7610; 36415; 99285

== ENCOUNTER 2016-12-23 22:39 | Emergency (ER) | payer OTHER ==
[~2016-12-23] VITALS: Ht 177.8 cm; Wt 132.0 kg
[2016-12-23 22:50] VITALS: Ht 177.8 cm; Wt 132.0 kg
--- NOTE | 2016-12-23 23:10 | ERA ---
ER Documentation Chief Complaint Date/Time DATE: 12/23/16 TIME: 23:09 Chief Complaint c/o headache/cough x 3 days HPI The patient is a 31-year-old male, presenting to the ER because of intermittent headache, associated with cough, nasal congestion for 3 days. He denies chill, facial pain, neck pain, chest pain, dyspnea, abdominal pain, dysuria, diarrhea. He does not smoke nor drink denies any illicit drug, denies suicidal or homicidal ideation Past medical history: Dyslipidemia, diabetes mellitus, hypertension, schizophrenia, asthma Past surgical history: None ROS All systems reviewed and are negative except as per history of present illness. Medications Home Meds Active Scripts Ibuprofen* (Motrin*) 600 Mg Tab, 600 MG PO Q6H Y for PAIN AND OR ELEVATED TEMP, #20 TAB Prov:ERIKA CHAMPAGNE MD 12/23/16 Diphenhydramine Hcl* (Benadryl*) 50 Mg Cap, 50 MG PO Q6H Y for congestion, #15 CAP Prov:ERIKA CHAMPAGNE MD 12/23/16 Dextromethorphan Hb-Promethazine Hcl (Promethazine DM Syrup) 473 Ml Syrup, 10 ML PO Q6H Y for COUGH, #4 OZ Prov:ERIKA CHAMPAGNE MD 12/23/16 Albuterol Sulfate* (Ventolin HFA*) 18 Gm Hfa.aer.ad, 2 PUFF INHALATION Q4H, #1 INHALER Prov:LOVE ROMERO MD 08/23/16 Ibuprofen* (Ibuprofen*) 600 Mg Tablet, 600 MG PO Q8 for PAIN AND/OR INFLAMMATION , #30 TAB Prov:MARIEL COURTNEY MD 03/04/16 Reported Medications Divalproex Sodium* (Divalproex Sodium*) 500 Mg Tablet.dr, 500 MG PO TID, #90 TAB 02/27/16 Simvastatin* (Zocor*) 20 Mg Tablet, 20 MG PO QHS, #30 TAB 02/27/16 Glipizide* (Glipizide*) 10 Mg Tablet, 10 MG PO DAILY, TAB 02/27/16 Benazepril Hcl* (Benazepril Hcl*) 10 Mg Tablet, 10 MG PO DAILY, #30 TAB 02/27/16 Metformin* (Glucophage*) 1,000 Mg Tablet, 1000 MG PO QID, #60 TAB 01/04/16 Allergies Allergies: Coded Allergies: No Known Allergies (Verified Allergy, Mild, 12/23/16) PMhx/Soc History of Surgery: No Anesthesia Reaction: No Hx Neurological Disorder: No Hx Respiratory Disorders: Yes (Asthma) Hx Cardiac Disorders: No Hx Psychiatric Problems: Yes (schizophrenia, bipolar?, mult. psych admits for suicidal) Hx Miscellaneous Medical Probl: Yes (DM) Hx Alcohol Use: Yes Hx Substance Use: Yes Hx Tobacco Use: Yes Physical Exam Vitals Vital Signs Date Time Temp Pulse Resp B/P Pulse Ox O2 Delivery O2 Flow Rate FiO2 12/23/16 22:50 98.5 92 20 143/90 98 Physical Exam Const: No acute distress. Head: Atraumatic. Eyes: Normal Conjunctiva. ENT: Normal External Ears, Nose and Mouth. Bilateral tympanic membranes and oropharynx are within normal limits Neck: Full range of motion. No meningismus. Resp: Clear to auscultation bilaterally. Cardio: Regular rate and rhythm, no murmurs. Abd: Soft, non distended, normal bowel sounds, non tender. Skin: No petechiae or rashes. Back: No midline or flank tenderness. Ext: No cyanosis, or edema. Neur: Awake and alert. No focal deficit Psych: Normal Mood and Affect. Procedures/MDM MEDICAL MAKING DECISION: The patient is a 31-year-old male, presenting with acute viral syndrome. He was treated with Motrin for headache with good response. The differential diagnoses considered include but are not limited to sinusitis, influenza, pneumonia, subarachnoid hemorrhage, occult trauma, CVA, meningitis, encephalitis, hypertension, tension, migraine, cluster, narcotic withdrawal, cervical spine disease. Departure Diagnosis: Primary Impression: Viral syndrome Condition: Good Comments He was discharged with Phenergan DM, Benadryl, Motrin I discussed the findings with the patient. I advised the patient to follow-up with the primary physician in about 1-2 days, sooner if needed and return if any concern. ERIKA CHAMPAGNE MD December 23, 2016 23:10
[2016-12-23] MEDS ORDERED: IBUP-1542 PO (23:25)
[2016-12-23] MEDS ORDERED: BEN50 PO (23:25)
[2016-12-23] MEDS ORDERED: D-ME473S18 PO (23:25)
[2016-12-23] MEDS ORDERED: IBUPROFEN 600 MG TAB PO ONE (23:30)
[2016-12-23 23:34] VITALS: BP 129/71; PULSE 91; RESP 18
== END 2016-12-23 23:40 | disposition home or self-care (01) ==
LOC: E/R 22:39
DX: B34.9 Viral infection, unspecified (principal); J45.909 Unspecified asthma, uncomplicated; E11.9 Type 2 diabetes mellitus without complications; I10 Essential (primary) hypertension; Z87.891 Personal history of nicotine dependence; Z79.84 Long term (current) use of oral hypoglycemic drugs
CPT/HCPCS: Z7502; Z7610; 99283

== ENCOUNTER 2016-12-30 19:33 | Emergency (ER) | payer OTHER ==
[~2016-12-30] VITALS: Ht 182.9 cm; Wt 134.0 kg
[~2016-12-30 19:33] MED LIST changes: +BEN50 PO; +D-ME473S18 PO
[2016-12-30 19:37] VITALS: Ht 182.9 cm; Wt 134.0 kg
[2016-12-30 20:38] LABS: URINE BLOOD (Dip) POC Negative (NEGATIVE)
--- NOTE | 2016-12-30 21:08 | ERA ---
ER Documentation Chief Complaint Date/Time DATE: 12/30/16 TIME: 21:03 Chief Complaint headache, body aches, nasal congestion HPI Patient presents with a chief complaint of malaise 2 weeks. Positive history of diabetes mellitus. No family history of cardiac or pulmonary disorder. Patient states that he generally just does not feel good. Patient was evaluated by another ED and was diagnosed with a viral illness. Pt denies weight loss, fevers, nausea, vomiting, diarrhea, constipation, hyperhidrosis, cough, sore throat, dysgeusia, change in hearing, change in vision, rigors, fatigue, difficulty breathing, chest pain, or change in bowl/bladder habits. Denies heat intolerance, skin or hair changes, significant changes in activity level or new medications. Does not frequently check his blood glucose. ROS All systems reviewed and are negative except as per history of present illness. Medications Home Meds Active Scripts Ibuprofen* (Motrin*) 600 Mg Tab, 600 MG PO Q6H Y for PAIN AND OR ELEVATED TEMP, #20 TAB Prov:ERIKA CHAMPAGNE MD 12/23/16 Diphenhydramine Hcl* (Benadryl*) 50 Mg Cap, 50 MG PO Q6H Y for congestion, #15 CAP Prov:ERIKA CHAMPAGNE MD 12/23/16 Dextromethorphan Hb-Promethazine Hcl (Promethazine DM Syrup) 473 Ml Syrup, 10 ML PO Q6H Y for COUGH, #4 OZ Prov:ERIKA CHAMPAGNE MD 12/23/16 Albuterol Sulfate* (Ventolin HFA*) 18 Gm Hfa.aer.ad, 2 PUFF INHALATION Q4H, #1 INHALER Prov:LOVE ROMERO MD 08/23/16 Ibuprofen* (Ibuprofen*) 600 Mg Tablet, 600 MG PO Q8 for PAIN AND/OR INFLAMMATION , #30 TAB Prov:MARIEL COURTNEY MD 03/04/16 Reported Medications Divalproex Sodium* (Divalproex Sodium*) 500 Mg Tablet.dr, 500 MG PO TID, #90 TAB 02/27/16 Simvastatin* (Zocor*) 20 Mg Tablet, 20 MG PO QHS, #30 TAB 02/27/16 Glipizide* (Glipizide*) 10 Mg Tablet, 10 MG PO DAILY, TAB 02/27/16 Benazepril Hcl* (Benazepril Hcl*) 10 Mg Tablet, 10 MG PO DAILY, #30 TAB 02/27/16 Metformin* (Glucophage*) 1,000 Mg Tablet, 1000 MG PO QID, #60 TAB 01/04/16 Allergies Allergies: Coded Allergies: No Known Allergies (Verified Allergy, Mild, 12/23/16) PMhx/Soc History of Surgery: No Anesthesia Reaction: No Hx Neurological Disorder: No Hx Respiratory Disorders: Yes (Asthma) Hx Cardiac Disorders: No Hx Psychiatric Problems: Yes (schizophrenia, bipolar) Hx Miscellaneous Medical Probl: Yes (DM) Hx Alcohol Use: Yes Hx Substance Use: Yes Hx Tobacco Use: Yes Smoking Status: Current every day smoker Physical Exam Vitals Vital Signs Date Time Temp Pulse Resp B/P Pulse Ox O2 Delivery O2 Flow Rate FiO2 12/30/16 19:37 98.4 65 20 141/90 99 Physical Exam Const: Morbidly obese 31-year-old male Head: Atraumatic Eyes: Normal Conjunctiva ENT: Normal External Ears, Nose and Mouth. Neck: No goiter palpated full range of motion..~ No meningismus. Resp: Clear to auscultation bilaterally Cardio: Regular rate and rhythm, no murmurs Abd: Soft, non tender, non distended. Normal bowel sounds Skin: No petechiae or rashes Back: No midline or flank tenderness Ext: No cyanosis, or edema Neur: Awake and alert Psych: Normal Mood and Affect Results 24 hrs Laboratory Tests Test 12/30/16 20:41 12/30/16 20:42 Bedside Urine pH (LAB) 5.0 Bedside Urine Protein (LAB) Negative Bedside Urine Glucose (UA) Negative Bedside Urine Ketones (LAB) Negative Bedside Urine Blood Negative Bedside Urine Nitrite (LAB) Negative Bedside Urine Leukocyte Esterase (L Negative Bedside Glucose 134mg/dL Procedures/MDM 31-year-old obese male with a chief complaint of malaise. EKG was ordered secondary to hard to hear heart sounds which was unremarkable. Blood glucose results are 134. The patient is currently stable. At this time a very low suspicion for acute coronary syndrome, pulmonary embolism, Tramaine-barrvirus, TKA/honk, endangerment of the airway, neurological disorder, meningismus or other acute pathologies. Advised patient to present to the clinic to be further evaluated. Patient is currently stable and his current condition is appropriate for discharge per Departure Diagnosis: Primary Impression: Malaise Additional Impression: History of diabetes mellitus Condition: Stable Additional Instructions: Follow up with your PCP within the next 1-3 days for a more thorough evaluation and a possible referral to a specialist. Return the the emergency department immediately if symptoms worsen or change. If you have any questions regarding medications, ask your pharmacist or us before you leave. If any adverse reactions occur while taking your medications, discontinue the treatment and return to the emergency department immediately. Take your medications as directed, and complete the entire course of treatment. ERIKA KEENE PA-C December 30, 2016 21:08
== END 2016-12-30 21:33 | disposition home or self-care (01) ==
LOC: FTE 19:33
DX: R53.81 Other malaise (principal); E11.9 Type 2 diabetes mellitus without complications; F17.210 Nicotine dependence, cigarettes, uncomplicated; J45.909 Unspecified asthma, uncomplicated; Z79.84 Long term (current) use of oral hypoglycemic drugs
CPT/HCPCS: 81003; 82962; 93005

== ENCOUNTER 2017-01-16 17:12 | Emergency (ER) | payer OTHER ==
[~2017-01-16] VITALS: Ht 162.6 cm; Wt 133.0 kg
[2017-01-16 17:15] VITALS: Ht 162.6 cm; Wt 133.0 kg
[2017-01-16] MEDS ORDERED: ACETAMINOPHEN 500 MG TAB PO STA (18:20)
[2017-01-16] MEDS ORDERED: AZITHROMYCIN 250 MG TAB PO ONE (18:30)
[2017-01-16] MEDS ORDERED: CEFTRIAXONE 250 MG INJ IM ONE (18:30)
[2017-01-16] MEDS ORDERED: NAPR-688 PO (19:55)
--- NOTE | 2017-01-16 20:03 | ERD ---
ER Documentation Chief Complaint Date/Time DATE: 01/16/17 TIME: 19:59 Chief Complaint KOCH, DYSURIA HPI This 31-year-old male presents complaining of a headache this been going on for several years. He states that he gets it on and off. It is not much worse now than his before. He denies any recent trauma. He has not tried taking anything for the pain yet. Says that the real problem is here as he has a trip from his penis with some burning on urination. He believes he may have an STD. He has been checking his blood sugars at home and they have been good, always lower than 200. ROS All systems reviewed and are negative except as per history of present illness. Medications Home Meds Active Scripts Naproxen* (Naproxen*) 500 Mg Tablet, 500 MG PO BID Y for PAIN, #20 TAB Prov:MIKE HUERTA DO 01/16/17 Ibuprofen* (Motrin*) 600 Mg Tab, 600 MG PO Q6H Y for PAIN AND OR ELEVATED TEMP, #20 TAB Prov:ERIKA CHAMPAGNE MD 12/23/16 Diphenhydramine Hcl* (Benadryl*) 50 Mg Cap, 50 MG PO Q6H Y for congestion, #15 CAP Prov:ERIKA CHAMPAGNE MD 12/23/16 Dextromethorphan Hb-Promethazine Hcl (Promethazine DM Syrup) 473 Ml Syrup, 10 ML PO Q6H Y for COUGH, #4 OZ Prov:ERIKA CHAMPAGNE MD 12/23/16 Albuterol Sulfate* (Ventolin HFA*) 18 Gm Hfa.aer.ad, 2 PUFF INHALATION Q4H, #1 INHALER Prov:LOVE ROMERO MD 08/23/16 Ibuprofen* (Ibuprofen*) 600 Mg Tablet, 600 MG PO Q8 for PAIN AND/OR INFLAMMATION , #30 TAB Prov:MARIEL COURTNEY MD 03/04/16 Reported Medications Divalproex Sodium* (Divalproex Sodium*) 500 Mg Tablet.dr, 500 MG PO TID, #90 TAB 02/27/16 Simvastatin* (Zocor*) 20 Mg Tablet, 20 MG PO QHS, #30 TAB 02/27/16 Glipizide* (Glipizide*) 10 Mg Tablet, 10 MG PO DAILY, TAB 02/27/16 Benazepril Hcl* (Benazepril Hcl*) 10 Mg Tablet, 10 MG PO DAILY, #30 TAB 02/27/16 Metformin* (Glucophage*) 1,000 Mg Tablet, 1000 MG PO QID, #60 TAB 01/04/16 Allergies Allergies: Coded Allergies: No Known Allergies (Verified Allergy, Mild, 12/23/16) PMhx/Soc History of Surgery: No Anesthesia Reaction: No Hx Neurological Disorder: No Hx Respiratory Disorders: Yes (Asthma) Hx Cardiac Disorders: No Hx Psychiatric Problems: Yes (schizophrenia, bipolar) Hx Miscellaneous Medical Probl: Yes (DM) Hx Alcohol Use: Yes Hx Substance Use: Yes Hx Tobacco Use: Yes Smoking Status: Current every day smoker Physical Exam Vitals Vital Signs Date Time Temp Pulse Resp B/P Pulse Ox O2 Delivery O2 Flow Rate FiO2 01/16/17 17:15 98.1 110 20 150/90 0 Physical Exam Const: [] No distress Head: Atraumatic Eyes: Normal Conjunctiva, EOMI, PERRLA ENT: Normal External Ears, Nose and Mouth. Neck: Full range of motion..~ No meningismus. Skin: No petechiae or rashes Back: No midline or flank tenderness Ext: No cyanosis, or edema Neur: Awake and alert and oriented 3, cranial nerves II through XII intact, normal gait. Psych: Normal Mood and Affect Results 24 hrs Current Medications Medications (Trade) Dose Ordered Sig/Apryl Route PRN Reason Start Time Stop Time Status Last Admin Dose Admin Acetaminophen (Tylenol Tab) 1,000 mg ONCE STAT PO 01/16/17 18:20 01/16/17 18:21 DC 01/16/17 18:59 Ceftriaxone Sodium (Rocephin) 250 mg ONCE ONCE IM 01/16/17 18:30 01/16/17 18:31 DC 01/16/17 18:59 Azithromycin (Zithromax) 1,000 mg ONCE ONCE PO 01/16/17 18:30 01/16/17 18:31 DC 01/16/17 18:59 Procedures/MDM Patient with penile drip believes is an STD. He says he preferred to just be treated for that rather than tested. Is given Rocephin 250 mg IM and azithromycin 1 g p.o. Is also given Tylenol for his headache which he said did help with pain. I have no suspicion for subarachnoid hemorrhage. Patient has stable vital signs and is feeling well. My discharge with primary care follow- up in the next couple of days. Return precautions Departure Diagnosis: Primary Impression: Cervicitis Additional Impression: Headache Condition: Stable Patient Instructions: Self-Care for Headaches, Cervicitis (Std), Treated Additional Instructions: Call your primary care doctor TOMORROW for an appointment during the next 1-2 days.See the doctor sooner or return here if your condition worsens before your appointment time. MIKE HUERTA DO Jan 16, 2017 20:03
== END 2017-01-16 20:08 | disposition left against medical advice (07) ==
LOC: FTE 17:12
DX: A59.09 Other urogenital trichomoniasis (principal); J45.909 Unspecified asthma, uncomplicated; E11.9 Type 2 diabetes mellitus without complications; F17.210 Nicotine dependence, cigarettes, uncomplicated; Z79.84 Long term (current) use of oral hypoglycemic drugs
CPT/HCPCS: J0696; Z7610; 99283

== ENCOUNTER 2017-01-18 23:40 | Emergency (ER) | payer OTHER ==
[~2017-01-18] VITALS: Ht 175.3 cm; Wt 136.0 kg
[~2017-01-18 23:40] MED LIST changes: +NAPR-688 PO
[2017-01-18 23:51] VITALS: Ht 175.3 cm; Wt 136.0 kg
[2017-01-19] MEDS ORDERED: ONDANSETRON (ODT) 4 MG TAB ODT STA (00:06)
[2017-01-19 00:27] LABS: URINE BLOOD (Dip) POC Negative (NEGATIVE)
--- NOTE | 2017-01-19 02:25 | ERD ---
ER Documentation Chief Complaint Date/Time DATE: 01/19/17 TIME: 02:12 Chief Complaint Dysuria HPI This 31-year-old male patient presents to the emergency department today with 12 hour history of nausea without vomiting and abdominal pain described as "burning in my private area". Patient reports sudden onset of dysuria. Patient has psychologic diagnosis, reports that he is not sexually active but has pain when he has been masturbating, reports that his penis is sore, and reports that he has stuck an object in his meatus. Patient denies any difficulty urinating, reports pain when doing so. Patient has questionable impulse control and compulsively pulls on his penis during evaluation. Patient denies discharge from his penis, history of sexually transmitted infection, denies back pain, hematuria, ROS All systems reviewed and are negative except as per history of present illness. Medications Home Meds Active Scripts Naproxen* (Naproxen*) 500 Mg Tablet, 500 MG PO BID Y for PAIN, #20 TAB Prov:MIKE HUERTA DO 01/16/17 Ibuprofen* (Motrin*) 600 Mg Tab, 600 MG PO Q6H Y for PAIN AND OR ELEVATED TEMP, #20 TAB Prov:ERIKA CHAMPAGNE MD 12/23/16 Diphenhydramine Hcl* (Benadryl*) 50 Mg Cap, 50 MG PO Q6H Y for congestion, #15 CAP Prov:ERIKA CHAMPAGNE MD 12/23/16 Dextromethorphan Hb-Promethazine Hcl (Promethazine DM Syrup) 473 Ml Syrup, 10 ML PO Q6H Y for COUGH, #4 OZ Prov:ERIKA CHAMPAGNE MD 12/23/16 Albuterol Sulfate* (Ventolin HFA*) 18 Gm Hfa.aer.ad, 2 PUFF INHALATION Q4H, #1 INHALER Prov:LOVE ROMERO MD 08/23/16 Ibuprofen* (Ibuprofen*) 600 Mg Tablet, 600 MG PO Q8 for PAIN AND/OR INFLAMMATION , #30 TAB Prov:MARIEL COURTNEY MD 03/04/16 Reported Medications Divalproex Sodium* (Divalproex Sodium*) 500 Mg Tablet.dr, 500 MG PO TID, #90 TAB 02/27/16 Simvastatin* (Zocor*) 20 Mg Tablet, 20 MG PO QHS, #30 TAB 02/27/16 Glipizide* (Glipizide*) 10 Mg Tablet, 10 MG PO DAILY, TAB 02/27/16 Benazepril Hcl* (Benazepril Hcl*) 10 Mg Tablet, 10 MG PO DAILY, #30 TAB 02/27/16 Metformin* (Glucophage*) 1,000 Mg Tablet, 1000 MG PO QID, #60 TAB 01/04/16 Allergies Allergies: Coded Allergies: No Known Allergies (Verified Allergy, Mild, 12/23/16) PMhx/Soc History of Surgery: No Anesthesia Reaction: No Hx Neurological Disorder: No Hx Respiratory Disorders: Yes (Asthma) Hx Cardiac Disorders: No Hx Psychiatric Problems: Yes (schizophrenia, bipolar) Hx Miscellaneous Medical Probl: Yes (DM) Hx Alcohol Use: Yes Hx Substance Use: Yes Hx Tobacco Use: Yes Smoking Status: Light tobacco smoker Physical Exam Vitals Vital Signs Date Time Temp Pulse Resp B/P Pulse Ox O2 Delivery O2 Flow Rate FiO2 01/18/17 23:51 99.7 121 20 153/89 97 Vitals stable, triage notes reviewed Physical Exam Const: No acute distress Head: Eyes: Normal Conjunctiva, PERRLA, EOMI ENT: Normal External Ears, Nose and Mouth. Neck: Resp: Chest rise and fall symmetrically, no respiratory distress Cardio: Abd: Soft, obese abdomen non tender, non distended. Male genitalia : normal circumcised penis, no lesion, ulcer, or abrasion. Testicles descended. Skin: Back: Ext: Neur: Awake and alert Psych: Impulse control, alert, follows commands, history difficult to follow. Results 24 hrs Laboratory Tests Test 01/19/17 00:30 Bedside Urine pH (LAB) 6.5 Bedside Urine Protein (LAB) Negative Bedside Urine Glucose (UA) 0.50% Bedside Urine Ketones (LAB) Negative Bedside Urine Blood Negative Bedside Urine Nitrite (LAB) Negative Bedside Urine Leukocyte Esterase (L Negative Current Medications Medications (Trade) Dose Ordered Sig/Apryl Route PRN Reason Start Time Stop Time Status Last Admin Dose Admin Ondansetron HCl (Zofran Odt) 4 mg ONCE STAT ODT 01/19/17 00:06 01/19/17 00:12 DC 01/19/17 00:29 Procedures/MDM This 31-year-old male patient presents to the emergency department today with several hour history of dysuria, and penis pain. Patient reports frequent masturbating and possible abrasion. Patient reports that he is not sexually active with a partner. Low suspicion for STI. Patient dysuria will be evaluated on urinalysis, UTI suspected, urinalysis negative for evidence of microscopic hematuria, leukocytosis or nitrates. Patient will be treated with Neosporin applied to glans penis twice daily. Patient was instructed to use lubrication when masturbating, instructed to not masturbate for the next 5 days to promote healing, follow-up with primary care physician for worsening of symptoms. I feel the patient is stable for discharge at this time. I have discussed results, examination findings, the treatment plan with the patient and family present prior to discharge. Indications for emergent reevaluation, side effects of medication were also discussed. All questions were answered. Patient verbalizes understanding and agrees with plan of care. Departure Diagnosis: Primary Impression: Penis pain Additional Impression: Dysuria Patient Instructions: Dysuria Referrals: [facility] Additional Instructions: Thank you for for coming to Thank you for for coming to [facility] for your care today. Please ask your nurse or provider if you have questions about your care today and do not leave until all your questions have been answered. Please use any medications given as directed and follow-up with your doctor (or the doctor you were referred to) in the next 2-3 days. If you do not have a primary care doctor you may follow up at the [facility] (listed below). You may also use motrin and tylenol as needed for fever and/or pain unless instructed otherwise by your provider or nurse. Indications for more urgent follow-up have been discussed, but you may return to the Emergency Department at ANY time for any worrisome or worsening symptoms. If you have abdominal pain, please know that no test or exam you received is perfect and you should follow up within 8 hours for continued pain. If you had any imaging studies today, such as an X-Ray or CT Scan, these studies will be reviewed later by a radiologist. You will be called if there are important findings that were not identified today, so make sure the contact information you provided at registration is correct. If you received any narcotic pain control medicine today, such as Vicodin, Morphine or Dilaudid, your coordination and judgment may be affected for a number of hours. Please do not drive or operate heavy machinery, and you may want someone to assist you at home. If you were given a prescription for narcotic medication, be aware that it is very addictive- use sparingly and only if necessary. For your care today. Please ask your nurse or provider if you have questions about your care today and do not leave until all your questions have been answered. Please use any medications given as directed and follow-up with your doctor (or the doctor you were referred to) in the next 2-3 days. If you do not have a primary care doctor you may follow up at the [facility] ( listed below). You may also use motrin and tylenol as needed for fever and/or pain unless instructed otherwise by your provider or nurse. Indications for more urgent follow-up have been discussed, but you may return to the Emergency Department at ANY time for any worrisome or worsening symptoms. If you have abdominal pain, please know that no test or exam you received is perfect and you should follow up within 8 hours for continued pain. If you had any imaging studies today, such as an X-Ray or CT Scan, these studies will be reviewed later by a radiologist. You will be called if there are important findings that were not identified today, so make sure the contact information you provided at registration is correct. If you received any narcotic pain control medicine today, such as Vicodin, Morphine or Dilaudid, your coordination and judgment may be affected for a number of hours. Please do not drive or operate heavy machinery, and you may want someone to assist you at home. If you were given a prescription for narcotic medication, be aware that it is very addictive- use sparingly and only if necessary. REYNALDO PHAM Jan 19, 2017 02:23
[2017-01-19] MEDS ORDERED: NEOM28.33 TP (02:29)
== END 2017-01-19 02:56 | disposition left against medical advice (07) ==
LOC: FTE 23:40 → E/R 01-19 02:56
DX: N48.89 Other specified disorders of penis (principal); J45.909 Unspecified asthma, uncomplicated; E11.9 Type 2 diabetes mellitus without complications; F17.210 Nicotine dependence, cigarettes, uncomplicated; R11.0 Nausea; Z79.84 Long term (current) use of oral hypoglycemic drugs
CPT/HCPCS: 81003; Z7610; 99283

== ENCOUNTER 2017-02-19 00:54 | Emergency (ER) | payer SELFPAY ==
[~2017-02-19] VITALS: Ht 175.3 cm; Wt 132.0 kg
[~2017-02-19 00:54] MED LIST changes: +NEOM28.33 TP
[2017-02-19 00:59] VITALS: Ht 175.3 cm; Wt 132.0 kg
== END 2017-02-19 04:00 | disposition left against medical advice (07) ==
LOC: E/R 00:54
DX: Z53.21 Procedure and treatment not carried out due to patient leaving prior to being seen by health care provider (principal)

== ENCOUNTER 2017-04-15 10:05 | Emergency (ER) | payer OTHER ==
[~2017-04-15] VITALS: Ht 177.8 cm; Wt 114.0 kg
[2017-04-15 10:07] VITALS: Ht 177.8 cm; Wt 114.0 kg
[2017-04-15] MEDS ORDERED: GLIP5TAB13 PO (12:06)
[2017-04-15] MEDS ORDERED: LOSA100T7 PO (12:07)
[2017-04-15] MEDS ORDERED: DIVA500T7 PO (12:07)
[2017-04-15] MEDS ORDERED: LANT3I SC (12:08)
--- NOTE | 2017-04-15 12:08 | ERD ---
ER Documentation Chief Complaint Date/Time DATE: 04/15/17 TIME: 12:08 Chief Complaint pt bib self with c/o bleeding from "penis" unk cause HPI 31y/o male with h/o diabetes, hypertension, adjustment disorder, well known with multiple prior ESD visits presents c/o bleeding from penis. During vigorous masturbation began bleeding from below foreskin. Mild pain. NO dysuria , polyuria or hematuria. No testicular pain or swelling. Denies abdominal pain N /V/D/C. No fevers or chills. ROS All systems reviewed and are negative except as per history of present illness. Medications Home Meds Reported Medications Insulin Glargine* (Lantus*) 100 Unit/Ml Soln, 20 UNIT SC QHS, #1 VIAL 04/15/17 Divalproex Sodium* (Depakote*) 500 Mg Tablet.dr, 500 MG PO TID, #90 TAB 04/15/17 Losartan Potassium* (Losartan Potassium*) 100 Mg Tablet, 100 MG PO DAILY Y for NEEDED, TAB 04/15/17 Glipizide* (Glipizide*) 5 Mg Tablet, 5 MG PO AC BREAKFAST DINNER Y for NEEDED , TAB NOT REGULARLY 04/15/17 Metformin* (Glucophage*) 1,000 Mg Tablet, 1000 MG PO BID, #60 TAB 01/04/16 Discontinued Reported Medications Divalproex Sodium* (Divalproex Sodium*) 500 Mg Tablet.dr, 500 MG PO TID, #90 TAB 02/27/16 Simvastatin* (Zocor*) 20 Mg Tablet, 20 MG PO QHS, #30 TAB 02/27/16 Glipizide* (Glipizide*) 10 Mg Tablet, 10 MG PO DAILY, TAB 02/27/16 Benazepril Hcl* (Benazepril Hcl*) 10 Mg Tablet, 10 MG PO DAILY, #30 TAB 02/27/16 Discontinued Scripts Neomycin Raphael/Bacitrac Zn/Poly (Neosporin Ointment) 28.3 Gm Oint...g., 28.3 GM TP BID for 7 Days Prov:ANKITREYNALDO 01/19/17 Naproxen* (Naproxen*) 500 Mg Tablet, 500 MG PO BID Y for PAIN, #20 TAB Prov:MIKE HUERTA DO 01/16/17 Ibuprofen* (Motrin*) 600 Mg Tab, 600 MG PO Q6H Y for PAIN AND OR ELEVATED TEMP, #20 TAB Prov:ERIKA CHAMPAGNE MD 12/23/16 Diphenhydramine Hcl* (Benadryl*) 50 Mg Cap, 50 MG PO Q6H Y for congestion, #15 CAP Prov:ERIKA CHAMPAGNE MD 12/23/16 Dextromethorphan Hb-Promethazine Hcl (Promethazine DM Syrup) 473 Ml Syrup, 10 ML PO Q6H Y for COUGH, #4 OZ Prov:ERIKA CHAMPAGNE MD 12/23/16 Albuterol Sulfate* (Ventolin HFA*) 18 Gm Hfa.aer.ad, 2 PUFF INHALATION Q4H, #1 INHALER Prov:LOVE ROMERO MD 08/23/16 Ibuprofen* (Ibuprofen*) 600 Mg Tablet, 600 MG PO Q8 for PAIN AND/OR INFLAMMATION , #30 TAB Prov:MARIEL COURTNEY MD 03/04/16 Allergies Allergies: Coded Allergies: No Known Allergies (Verified Allergy, Mild, 04/15/17) PMhx/Soc Reviewed in chart, as per HPI History of Surgery: No Anesthesia Reaction: No Hx Neurological Disorder: No Hx Respiratory Disorders: Yes (Asthma) Hx Cardiac Disorders: No Hx Psychiatric Problems: Yes (schizophrenia, bipolar) Hx Miscellaneous Medical Probl: Yes (DM) Hx Alcohol Use: Yes Hx Substance Use: Yes Hx Tobacco Use: Yes Smoking Status: Never smoker FmHx Not relevant to presenting complaint. Physical Exam Vitals Vital Signs Date Time Temp Pulse Resp B/P Pulse Ox O2 Delivery O2 Flow Rate FiO2 04/15/17 12:36 91 14 123/78 99 Room Air 04/15/17 10:07 98.3 112 18 137/63 97 Physical Exam Const: Alert, Bizarre affect Head: Atraumatic Eyes: Normal Conjunctiva ENT: Normal External Ears, Nose and Mouth. Neck: Full range of motion. Nontender Resp: Clear to auscultation bilaterally Cardio: Regular rate and rhythm, no murmurs Abd: Soft, non tender, non distended. Normal bowel sounds : Normal external genitalia. Uncircumcised. Small tear in frenulum. No bleeding. No testicular swelling or tenderness. Skin: No petechiae or rashes Back: No midline or flank tenderness Ext: No cyanosis, or edema Neur: Awake and alert Psych: Cooperative. Bizarre Affect Results 24 hrs Laboratory Tests Test 04/15/17 12:13 Bedside Glucose 271mg/dL Procedures/MDM DOCUMENTS REVIEWED: ED nurse, multiple prior ED visits. MEDICAL DECISION MAKINy/o male with h/o diabetes, hypertension, adjustment disorder, well known with multiple prior ED visits presents c/o bleeding from penis. Small frenulum tear without active bleeding. No phimosis, paraphimosis, balanitis or cellulitis. Stable for discharge with precautionary instruction and outpatient f/u as counseled. Counseled patient regarding diagnostic workup, diagnosis and need for followup. Understands to return to ED if symptoms recur, worsen or any other concerns. Departure Diagnosis: Primary Impression: Penile bleeding Additional Impressions: Persistent frenulum of penis Hyperglycemia due to type 2 diabetes mellitus Diabetes mellitus speech correction consultant insulin use: with correction use Qualified Code: E11.65 - Type 2 diabetes mellitus with hyperglycemia, with long-term current use of insulin Condition: VIVIAN Macias MD Apr 15, 2017 12:08
[2017-04-15 12:36] VITALS: BP 123/78; PULSE 91; RESP 14
== END 2017-04-15 12:59 | disposition home or self-care (01) ==
LOC: E/R 10:05
DX: N48.89 Other specified disorders of penis (principal); E11.65 Type 2 diabetes mellitus with hyperglycemia; I10 Essential (primary) hypertension; J45.909 Unspecified asthma, uncomplicated; Z79.4 Long term (current) use of insulin; Z79.84 Long term (current) use of oral hypoglycemic drugs; Z87.891 Personal history of nicotine dependence
CPT/HCPCS: 82962; Z7502; 99282

== ENCOUNTER 2017-04-20 09:53 | Emergency (ER) | payer OTHER ==
[~2017-04-20] VITALS: Ht 177.8 cm; Wt 132.0 kg
[~2017-04-20 09:53] MED LIST changes: -ALBU18HF INHALATION; -BEN50 PO; -BENA10TA48 PO; -D-ME473S18 PO; -DIVA-16 PO; +DIVA500T7 PO; -GLIP-95 PO; +GLIP5TAB13 PO; -IBUP-1542 PO; +LANT3I SC; +LOSA100T7 PO; -NAPR-688 PO; -NEOM28.33 TP; -SIMV20TA PO
[2017-04-20 10:09] VITALS: Ht 177.8 cm; Wt 132.0 kg
[2017-04-20] MEDS ORDERED: ALBUTEROL 0.083% (NEB) 2.5 MG/3 ML AMP HHN STA (11:21)
[2017-04-20] MEDS ORDERED: predniSONE 20 MG TAB PO ONE (11:30)
[2017-04-20] MEDS ORDERED: LIDOCAINE 1% (MDV) 20 ML INJ IM ONE (11:30)
[2017-04-20] MEDS ORDERED: AZITHROMYCIN 250 MG TAB PO ONE (11:30)
[2017-04-20] MEDS ORDERED: CEFTRIAXONE 250 MG INJ IM ONE (11:30)
[2017-04-20] MEDS ORDERED: SOD CHLORIDE 0.9% 1,000 ML IV STA (11:56)
--- NOTE | 2017-04-20 11:59 | ERD ---
ER Documentation Chief Complaint Date/Time DATE: 04/20/17 TIME: 11:57 Chief Complaint SHORTNESS OF BREATH, FEELS DIZZY, COUGHING, BACK PAIN, HX OF ASTHMA HPI 31-year-old male with history of asthma, psychiatric illness presents emergency department with multiple complaints. #1 patient states he has asthma symptoms, shortness of breath with coughing and back pain. #2 he says he has discharge from his penis, and states that he has been "sleeping with crazy women" and #3 he says he feels "sick", he feels like he has a "virus" and feels bad. Feels body aches, dizziness. He denies abdominal pain, nausea, vomiting, chest pains. ROS All systems reviewed and are negative except as per history of present illness. Medications Home Meds Active Scripts Prednisone* (Prednisone*) 20 Mg Tab, 40 MG PO DAILY for 4 Days, TAB Prov:WADE MOODY PA-C 04/20/17 Albuterol Sulfate* (Proair HFA*) 8.5 Gm Hfa.aer.ad, 2 PUFF INH Q4, #1 INHALER Prov:WADE MOODY PA-C 04/20/17 Reported Medications Insulin Glargine* (Lantus*) 100 Unit/Ml Soln, 20 UNIT SC QHS, #1 VIAL 04/15/17 Divalproex Sodium* (Depakote*) 500 Mg Tablet.dr, 500 MG PO TID, #90 TAB 04/15/17 Losartan Potassium* (Losartan Potassium*) 100 Mg Tablet, 100 MG PO DAILY Y for NEEDED, TAB 04/15/17 Glipizide* (Glipizide*) 5 Mg Tablet, 5 MG PO AC BREAKFAST DINNER Y for NEEDED , TAB NOT REGULARLY 04/15/17 Metformin* (Glucophage*) 1,000 Mg Tablet, 1000 MG PO BID, #60 TAB 01/04/16 Discontinued Reported Medications Divalproex Sodium* (Divalproex Sodium*) 500 Mg Tablet.dr, 500 MG PO TID, #90 TAB 02/27/16 Simvastatin* (Zocor*) 20 Mg Tablet, 20 MG PO QHS, #30 TAB 02/27/16 Glipizide* (Glipizide*) 10 Mg Tablet, 10 MG PO DAILY, TAB 02/27/16 Benazepril Hcl* (Benazepril Hcl*) 10 Mg Tablet, 10 MG PO DAILY, #30 TAB 02/27/16 Discontinued Scripts Neomycin Raphael/Bacitrac Zn/Poly (Neosporin Ointment) 28.3 Gm Oint...g., 28.3 GM TP BID for 7 Days Prov:REYNALDO PHAM 01/19/17 Naproxen* (Naproxen*) 500 Mg Tablet, 500 MG PO BID Y for PAIN, #20 TAB Prov:BRADLEYMIKE 01/16/17 Ibuprofen* (Motrin*) 600 Mg Tab, 600 MG PO Q6H Y for PAIN AND OR ELEVATED TEMP, #20 TAB Prov:ERIKA CHAMPAGNE MD 12/23/16 Diphenhydramine Hcl* (Benadryl*) 50 Mg Cap, 50 MG PO Q6H Y for congestion, #15 CAP Prov:ERIKA CHAMPAGNE MD 12/23/16 Dextromethorphan Hb-Promethazine Hcl (Promethazine DM Syrup) 473 Ml Syrup, 10 ML PO Q6H Y for COUGH, #4 OZ Prov:ERIKA CHAMPAGNE MD 12/23/16 Albuterol Sulfate* (Ventolin HFA*) 18 Gm Hfa.aer.ad, 2 PUFF INHALATION Q4H, #1 INHALER Prov:LOVE ROMERO MD 08/23/16 Ibuprofen* (Ibuprofen*) 600 Mg Tablet, 600 MG PO Q8 for PAIN AND/OR INFLAMMATION , #30 TAB Prov:MARIEL COURTNEY MD 03/04/16 Allergies Allergies: Coded Allergies: No Known Allergies (Verified Allergy, Mild, 04/15/17) PMhx/Soc History of Surgery: No Anesthesia Reaction: No Hx Neurological Disorder: No Hx Respiratory Disorders: Yes (Asthma) Hx Cardiac Disorders: No Hx Psychiatric Problems: Yes (schizophrenia, bipolar) Hx Miscellaneous Medical Probl: Yes (DM) Hx Alcohol Use: Yes Hx Substance Use: Yes Hx Tobacco Use: Yes Smoking Status: Current every day smoker Physical Exam Vitals Vital Signs Date Time Temp Pulse Resp B/P Pulse Ox O2 Delivery O2 Flow Rate FiO2 04/20/17 13:39 70 18 141/79 98 Room Air 04/20/17 11:59 97 20 98 21 04/20/17 10:09 99.2 97 24 136/71 96 Physical Exam General: Well-developed, well-nourished. The patient appears in no acute distress. HEENT: Head is normocephalic, atraumatic. No scleral icterus Neck: Supple. Nontender. Lungs: wheezing bilaterally, speaking in full sentences, no acute distress Heart: Regular rate and rhythm. S1 and S2 are normal. No murmurs, gallops, or rubs. Abdomen: Soft, nontender, nondistended. Bowel sounds are normoactive. Extremities: No clubbing or cyanosis. Normal pulses. Moving extremities x 4. No weakness. Neurologic: Alert and oriented 3. No focal deficits. Skin: Normal turgor. No rash or lesions. Result Diagram: 04/20/17 1200 04/20/17 1200 Results 24 hrs Laboratory Tests Test 04/20/17 11:40 04/20/17 11:53 04/20/17 12:00 04/20/17 13:30 Urine Color YELLOW Urine Clarity CLEAR Urine pH 7.0 Urine Specific Basco <1.005 Urine Ketones NEGATIVEmg/dL Urine Nitrite NEGATIVEmg/dL Urine Bilirubin NEGATIVEmg/dL Urine Urobilinogen 0.2 E.U./dLmg/dL Urine Leukocyte Esterase NEGATIVELeu/ul Urine Hemoglobin NEGATIVEmg/dL Urine Glucose 3+mg/dL Urine Total Protein NEGATIVEmg/dl Bedside Glucose 352mg/dL 287mg/dL White Blood Count 6.010^3/ul Red Blood Count 5.4210^6/ul Hemoglobin 15.0g/dl Hematocrit 45.4% Mean Corpuscular Volume 83.8fl Mean Corpuscular Hemoglobin 27.7pg Mean Corpuscular Hemoglobin Concent 33.0g/dl Red Cell Distribution Width 12.3% Platelet Count 44300^3/UL Mean Platelet Volume 11.2fl Neutrophils % 54.4% Lymphocytes % 33.8% Monocytes % 6.0% Eosinophils % 5.2% Basophils % 0.3% Nucleated Red Blood Cells % 0.0/100WBC Neutrophils # 3.210^3/ul Lymphocytes # 2.010^3/ul Monocytes # 0.410^3/ul Eosinophils # 0.310^3/ul Basophils # 0.010^3/ul Nucleated Red Blood Cells # 0.010^3/ul Sodium Level 136mmol/L Potassium Level 4.4mmol/L Chloride Level 103mmol/L Carbon Dioxide Level 26mmol/L Anion Gap 11 Blood Urea Nitrogen 11mg/dl Creatinine 0.72mg/dl Glucose Level 388mg/dl Calcium Level 9.0mg/dl Current Medications Medications (Trade) Dose Ordered Sig/Apryl Route PRN Reason Start Time Stop Time Status Last Admin Dose Admin Albuterol (Proventil 0.083% (Neb)) 5 mg ONCE STAT HHN 04/20/17 11:21 04/20/17 11:25 DC 04/20/17 12:03 Prednisone (Prednisone) 40 mg ONCE ONCE PO 04/20/17 11:30 04/20/17 11:31 DC 04/20/17 11:53 Ceftriaxone Sodium (Rocephin) 250 mg ONCE ONCE IM 04/20/17 11:30 04/20/17 11:31 DC 04/20/17 11:50 Lidocaine (Xylocaine 1% (Mdv) 20 ml) 2 ml ONCE ONCE IM 04/20/17 11:30 04/20/17 11:31 DC 04/20/17 11:50 Azithromycin 1000 mg 1,000 mg ONCE ONCE PO 04/20/17 11:30 04/20/17 11:31 DC 04/20/17 11:49 Sodium Chloride (NS) 1,000 ml @ 1,000 mls/hr Q1H STAT IV 04/20/17 11:56 04/20/17 12:55 DC 04/20/17 12:07 DIAGNOSTIC IMAGING REPORT Patient: JOSE CACERES : 1985 Age: 31 Sex: M MR #: [id number] DOS: 04/20/17 1121 Ordering MD: WADE MOODY PA-C Location: [facility] Room/Bed: PROCEDURE: XR Chest. CLINICAL INDICATION: chest pain cough, asthma TECHNIQUE: Single frontal view of the chest was obtained COMPARISON: CR CHEST 07/25/2016 FINDINGS: The heart and mediastinum are within normal limits. There are mild right lower lobe linear atelectatic changes. The lungs are otherwise clear. There is no pleural effusion or pneumothorax. RPTAT: AA IMPRESSION: Mild right lower lobe linear atelectatic changes. .Alex Claire MD, Date Time Electronically viewed and signed by .Alex Claire MD, on 04/20/2017 11: 59 .S/ CC: WADE MOODY PA-C Procedures/MDM ED course: Patient was given albuterol 5 mg breathing treatment, prednisone 40 mg by mouth for asthma symptoms. Patient was treated with Zithromax PO and Rocephin intramuscularly. Accu-Chek was 353, therefore an IV was established, blood was obtained and he was given a fluid bolus of normal saline. MDM: 31-year-old male comes to emergency department with alcohol withdrawal, patient with diabetes type 2 uncontrolled, asthma symptoms, URI symptoms, urethritis. Patient was given a breathing treatment and prednisone, he states he is feeling better. Chest x-ray does not show evidence of pneumonia, he will be given prednisone and albuterol to continue home with. Urine symptoms include painful urination, and given the patient's recent history of unprotected sexual intercourse he was treated presumptively for urethritis. Additionally he complains of not feeling well, his blood sugar was elevated and it was over 350, labs were obtained, without signs of DKA. Patient was given fluid bolus of normal saline, which improved his blood sugar in a stable for discharge. Departure Diagnosis: Primary Impression: Multiple complaints Additional Impressions: Asthma Diabetes Condition: Good WADE MOODY PA-C Apr 20, 2017 11:59
--- NOTE | 2017-04-20 11:59 | RADRPT ---
PROCEDURE: XR Chest. CLINICAL INDICATION: chest pain cough, asthma TECHNIQUE: Single frontal view of the chest was obtained COMPARISON: CR CHEST 07/25/2016 FINDINGS: The heart and mediastinum are within normal limits. There are mild right lower lobe linear atelectatic changes. The lungs are otherwise clear. There is no pleural effusion or pneumothorax. RPTAT: AA IMPRESSION: Mild right lower lobe linear atelectatic changes. .Alex Claire MD, MD Date Time Electronically viewed and signed by .Alex Claire MD, MD on 04/20/2017 11:59 .S/
[2017-04-20 12:24] LABS: BASOPHILS % 0.3 % (0.0-2.0); EOSINOPHILS # 0.3 10^3/ul (0.0-0.5); EOSINOPHILS % 5.2 % (0.0-7.0); HEMATOCRIT 45.4 % (42.0-52.0); LYMPHOCYTES % 33.8 % (15.0-51.0); MEAN CORPUSCULAR HEMOGLOBIN 27.7 pg (29.0-33.0); MEAN CORPUSCULAR VOLUME 83.8 fl (82.0-101.0); MEAN PLATELET VOLUME 11.2 fl (7.4-10.4); MONOCYTE # 0.4 10^3/ul (0.3-0.9); NEUTROPHIL # 3.2 10^3/ul (1.6-7.5); NEUTROPHILS % 54.4 % (39.0-77.0); PLATELET COUNT 171 10^3/UL (140-415); RED BLOOD COUNT 5.42 10^6/ul (4.70-6.10); RED CELL DISTRIBUTION WIDTH 12.3 % (11.5-14.5)
[2017-04-20 12:46] LABS: ADD UMIC NO; UR BILIRUBIN (Dip) NEGATIVE (NEGATIVE); UR BLOOD (Dip) NEGATIVE (NEGATIVE); UR CLARITY CLEAR (CLEAR); UR COLOR YELLOW (YELLOW); UR GLUCOSE (Dip) 3+ mg/dL (NEGATIVE); UR KETONES (Dip) NEGATIVE (NEGATIVE); UR LEUKOCYTE ESTERASE (Dip) NEGATIVE Leu/ul (NEGATIVE); UR NITRITE (Dip) NEGATIVE (NEGATIVE); UR TOTAL PROTEIN (Dip) NEGATIVE (NEGATIVE); UR UROBILINOGEN (Dip) 0.2 E.U./dL mg/dL (NEGATIVE)
[2017-04-20 12:49] LABS: CREATININE 0.72 mg/dl (0.61-1.24); POTASSIUM 4.4 mmol/L (3.5-5.1)
[2017-04-20] MEDS ORDERED: PRED20TA PO (13:34)
[2017-04-20] MEDS ORDERED: ALBU8.5H3 INH (13:34)
[2017-04-20 13:39] VITALS: BP 141/79; PULSE 70; RESP 18
[2017-04-26] MEDS ORDERED: CLOT30CR24 TOP (15:24)
[2017-04-26] MEDS ORDERED: METF500T4 PO (15:24)
== END 2017-04-20 13:40 | disposition home or self-care (01) ==
LOC: FTE 09:53
DX: J45.901 Unspecified asthma with (acute) exacerbation (principal); E11.9 Type 2 diabetes mellitus without complications; F17.210 Nicotine dependence, cigarettes, uncomplicated; R42 Dizziness and giddiness; M54.9 Dorsalgia, unspecified; Z79.4 Long term (current) use of insulin; Z79.84 Long term (current) use of oral hypoglycemic drugs
CPT/HCPCS: 36415; 71010; 80048; 81003; 82962; 85025; 87591; 94664; 96372; J0696; J7030; J7512; Z7502; Z7610

== ENCOUNTER 2017-06-11 15:54 | Emergency (ER) | payer OTHER ==
[~2017-06-11] VITALS: Wt 126.0 kg
[~2017-06-11 15:54] MED LIST changes: +ALBU8.5H3 INH; +CLOT30CR24 TOP; +METF500T4 PO; +PRED20TA PO
[2017-06-11] MEDS ORDERED: BENZ100C70 PO (16:14)
--- NOTE | 2017-06-11 16:17 | ERD ---
ER Documentation Chief Complaint Chief Complaint COUGH X 30 MINS HPI Patient is a 31-year-old male who presents complaining of cough that he has had for 30 minutes. He states he has felt warm but he does not have a fever. No nausea vomiting or diarrhea. He has not taken any medications for this. ROS All systems reviewed and are negative except as per history of present illness. Medications Home Meds Active Scripts Benzonatate* (Tessalon Perle*) 100 Mg Capsule, 100 MG PO Q8H Y for COUGH, #20 CAP Prov:JERRY INGRAM PA-C 06/11/17 Clotrimazole* (Clotrimazole* AF) 1% - 30 Gm Cream.gm., 1 APPLIC TOP BID for 10 Days, TUB Prov:NICHOLE GUADALUPE MD 04/26/17 Metformin* (Glucophage*) 500 Mg Tab, 500 MG PO BID, #60 TAB Prov:NICHOLE GUADALUPE MD 04/26/17 Prednisone* (Prednisone*) 20 Mg Tab, 40 MG PO DAILY for 4 Days, TAB Prov:WADE MOODY PA-C 04/20/17 Albuterol Sulfate* (Proair HFA*) 8.5 Gm Hfa.aer.ad, 2 PUFF INH Q4, #1 INHALER Prov:WADE MOODY PA-C 04/20/17 Reported Medications Insulin Glargine* (Lantus*) 100 Unit/Ml Soln, 20 UNIT SC QHS, #1 VIAL 04/15/17 Divalproex Sodium* (Depakote*) 500 Mg Tablet.dr, 500 MG PO TID, #90 TAB 04/15/17 Losartan Potassium* (Losartan Potassium*) 100 Mg Tablet, 100 MG PO DAILY Y for NEEDED, TAB 04/15/17 Glipizide* (Glipizide*) 5 Mg Tablet, 5 MG PO AC BREAKFAST DINNER Y for NEEDED , TAB NOT REGULARLY 04/15/17 Metformin* (Glucophage*) 1,000 Mg Tablet, 1000 MG PO BID, #60 TAB 01/04/16 Allergies Allergies: Coded Allergies: No Known Allergies (Verified Allergy, Mild, 04/15/17) PMhx/Soc History of Surgery: No Anesthesia Reaction: No Hx Neurological Disorder: No Hx Respiratory Disorders: Yes (Asthma) Hx Cardiac Disorders: No Hx Psychiatric Problems: Yes (schizophrenia, bipolar) Hx Miscellaneous Medical Probl: Yes (DM) Hx Alcohol Use: Yes Hx Substance Use: Yes Hx Tobacco Use: Yes Smoking Status: Never smoker FmHx Family History: No diabetes Physical Exam Vitals Vital Signs Date Time Temp Pulse Resp B/P Pulse Ox O2 Delivery O2 Flow Rate FiO2 06/11/17 15:56 97.3 110 18 132/78 99 Physical Exam Const: [] Head: Atraumatic Eyes: Normal Conjunctiva ENT: Normal External Ears, Nose and Mouth. Neck: Full range of motion..~ No meningismus. Resp: Clear to auscultation bilaterally Cardio: Regular rate and rhythm, no murmurs Abd: Soft, non tender, non distended. Normal bowel sounds Skin: No petechiae or rashes Back: No midline or flank tenderness Ext: No cyanosis, or edema Neur: Awake and alert Psych: Normal Mood and Affect Procedures/MDM Patient presents with cough for 30 minutes. He is afebrile and well-appearing. His lungs are clear. I doubt pneumonia. This is most likely viral he is discharged Kylie Garcia and I recommended Tylenol and Motrin at home for pain and fever control however at this time he does not have fever. Patient counseled regarding my diagnostic impression and care plan. Prior to discharge all questions answered. Pt agrees with treatment plan and understands strict return precautions. Pt is instructed to follow up with primary care provider within 24-48 hours. Precautionary instructions provided including instructions to return to the ER if not improving or for any worsening or changing symptoms or concerns. Departure Diagnosis: Primary Impression: URI (upper respiratory infection) Condition: Stable Patient Instructions: Preventing Common Respiratory Infections Additional Instructions: Call your primary care doctor TOMORROW for an appointment during the next 1-2 days.See the doctor sooner or return here if your condition worsens before your appointment time. JERRY INGRAM PA-C Jun 11, 2017 16:17
== END 2017-06-11 16:20 | disposition home or self-care (01) ==
LOC: FTE 15:54
DX: J06.9 Acute upper respiratory infection, unspecified (principal); E11.9 Type 2 diabetes mellitus without complications; J45.909 Unspecified asthma, uncomplicated; Z79.4 Long term (current) use of insulin; Z79.84 Long term (current) use of oral hypoglycemic drugs; Z87.891 Personal history of nicotine dependence
CPT/HCPCS: 99283

== ENCOUNTER 2017-08-14 09:19 | Emergency (ER) | END 2017-08-14 10:40 | disposition left against medical advice (07) ==

== ENCOUNTER 2017-08-14 19:18 | Emergency (ER) | END 2017-08-14 22:35 | disposition left against medical advice (07) ==

== ENCOUNTER 2017-08-16 16:27 | Emergency (ER) | END 2017-08-16 21:00 | disposition home or self-care (01) ==

== ENCOUNTER 2017-08-22 02:20 | Emergency (ER) | END 2017-08-22 12:55 | disposition left against medical advice (07) ==

== ENCOUNTER 2017-09-05 08:05 | Emergency (ER) | END 2017-09-05 08:59 | disposition home or self-care (01) ==

== ENCOUNTER 2017-09-16 21:47 | Emergency (ER) | END 2017-09-16 23:57 | disposition left against medical advice (07) ==

== ENCOUNTER 2017-10-17 18:38 | Emergency (ER) | END 2017-10-17 21:17 | disposition home or self-care (01) ==

== ENCOUNTER 2017-11-09 15:43 | Emergency (ER) | END 2017-11-09 16:00 | disposition home or self-care (01) ==

== ENCOUNTER 2018-08-16 14:31 | Emergency (ER) | payer MEDICAID, OTHER ==
[~2018-08-16] VITALS: Ht 172.7 cm; Wt 123.1 kg
[~2018-08-16 14:31] MED LIST changes: -ALBU8.5H3 INH; +ALBU8.5H8 INH; +BENZ-6 PO; +DIVA-48 PO; -DIVA500T7 PO; +HC30CR25 TOP; +LOSA100T15 PO; -LOSA100T7 PO; +METF-849 PO; -METF500T4 PO; +PHEN-538 PO
[2018-08-16 14:37] VITALS: BP 143/79; PULSE 95; RESP 20; Ht 172.7 cm; Wt 123.1 kg
--- NOTE | 2018-08-16 21:04 | ERD ---
ER Documentation Chief Complaint Chief Complaint CP x 1 week - L arm heaviness - pt not in distress HPI 33yo male presents for chest pain x1 weeks. Pain is substernal, nonradiating, rated 6/10. There is associated SOB, palpitation. Patient was recently release from [facility]. He states he has history for heart disease likely due to his h/o heavy meth use. He does have h/o 5150 hold at [place]. Patient denies abdominal pain, nausea or vomiting. ROS All systems reviewed and are negative except as per history of present illness. Medications Home Meds Active Scripts Ibuprofen* (Motrin*) 600 Mg Tab, 600 MG PO Q6H PRN for PAIN AND OR ELEVATED TE MP, #30 TAB Prov:JERRY INGRAM PA-C 08/22/18 Albuterol Sulfate* (Proair HFA*) 8.5 Gm Hfa.aer.ad, 2 PUFF INH Q4, #1 INHALER Prov:FEDERICO MORRIS PA-C 11/09/17 Hydrocortisone* Topical (Hydrocortisone* Topical) 2.5%-28.3 Gm Cream..g., 1 APPLIC TOP BID, #1 TUB Prov:JENNIFER GODOY PA-C 10/17/17 Clotrimazole* (Clotrimazole* AF) 1% - 30 Gm Cream.gm., 1 APPLIC TOP BID for 7 Days, #1 TUB Prov:JENNIFER GODOY PA-C 10/17/17 Phenazopyridine Hcl* (Pyridium*) 200 Mg Tab, 200 MG PO TID PRN for URINARY PAIN, #6 TAB Prov:LOVE ROMERO MD 09/05/17 Benzonatate* (Tessalon Perle*) 100 Mg Capsule, 100 MG PO Q8H PRN for COUGH, #20 CAP Prov:JERRY INGRAM PA-C 06/11/17 Clotrimazole* (Clotrimazole* AF) 1% - 30 Gm Cream.gm., 1 APPLIC TOP BID for 10 Days, TUB Prov:NICHOLE GUADALUPE MD 04/26/17 Metformin* (Glucophage*) 500 Mg Tab, 500 MG PO BID, #60 TAB Prov:NICHOLE GUADALUPE MD 04/26/17 Prednisone* (Prednisone*) 20 Mg Tab, 40 MG PO DAILY for 4 Days, TAB Prov:WADE MOODY PA-C 04/20/17 Albuterol Sulfate* (Proair HFA*) 8.5 Gm Hfa.aer.ad, 2 PUFF INH Q4, #1 INHALER Prov:WADE MOODY PA-C 04/20/17 Reported Medications Insulin Glargine* (Lantus*) 100 Unit/Ml Soln, 20 UNIT SC QHS, #1 VIAL 04/15/17 Divalproex Sodium* (Depakote*) 500 Mg Tablet.dr, 500 MG PO TID, #90 TAB 04/15/17 Losartan Potassium* (Losartan Potassium*) 100 Mg Tablet, 100 MG PO DAILY PRN for NEEDED, TAB 04/15/17 Glipizide* (Glipizide*) 5 Mg Tablet, 5 MG PO AC BREAKFAST DINNER PRN for NEEDED, TAB NOT REGULARLY 04/15/17 Metformin* (Glucophage*) 1,000 Mg Tablet, 1000 MG PO BID, #60 TAB 01/04/16 Allergies Allergies: Coded Allergies: No Known Allergies (Verified Allergy, Mild, 04/15/17) PMhx/Soc History of Surgery: No Anesthesia Reaction: No Hx Neurological Disorder: No Hx Respiratory Disorders: Yes (asthma) Hx Cardiac Disorders: Yes (HTN) Hx Psychiatric Problems: Yes (schizophrenia, bipolar) Hx Miscellaneous Medical Probl: Yes (DM) Hx Alcohol Use: No Hx Substance Use: No Hx Tobacco Use: No Smoking Status: Never smoker Physical Exam Vitals Vital Signs Date Temp Pulse Resp B/P (MAP) Pulse Ox O2 O2 Flow FiO2 Time Delivery Rate 08/16/18 98.8 95 20 143/79 97 14:37 (100) Physical Exam Const: No acute distress Resp: Clear to auscultation bilaterally Cardio: Regular rate and rhythm, no murmurs Abd: Soft, non tender, non distended. Normal bowel sounds Skin: No petechiae or rashes Back: No midline or flank tenderness Ext: No cyanosis, or edema Neur: Awake and alert Psych: Normal Mood and Affect Results 24 hrs Laboratory Tests Test 08/16/18 16:37 White Blood Count 6.1 10^3/ul Red Blood Count 5.25 10^6/ul Hemoglobin 14.6 g/dl Hematocrit 44.7 % Mean Corpuscular Volume 85.1 fl Mean Corpuscular Hemoglobin 27.8 pg Mean Corpuscular Hemoglobin Concent 32.7 g/dl Red Cell Distribution Width 12.6 % Platelet Count 187 10^3/UL Mean Platelet Volume 10.5 fl Immature Granulocytes % 0.200 % Neutrophils % 48.8 % Lymphocytes % 39.9 % Monocytes % 8.5 % Eosinophils % 2.3 % Basophils % 0.3 % Nucleated Red Blood Cells % 0.0 /100WBC Immature Granulocytes # 0.010 10^3/ul Neutrophils # 3.0 10^3/ul Lymphocytes # 2.4 10^3/ul Monocytes # 0.5 10^3/ul Eosinophils # 0.1 10^3/ul Basophils # 0.0 10^3/ul Nucleated Red Blood Cells # 0.0 10^3/ul Sodium Level 141 mmol/L Potassium Level 4.3 mmol/L Chloride Level 107 mmol/L Carbon Dioxide Level 25 mmol/L Anion Gap 9 Blood Urea Nitrogen 9 mg/dl Creatinine 0.66 mg/dl Est Glomerular Filtrat Rate mL/min > 60 mL/min Glucose Level 254 mg/dl Hemoglobin A1c 7.0 % Calcium Level 9.4 mg/dl Total Bilirubin 0.1 mg/dl Direct Bilirubin 0.00 mg/dl Indirect Bilirubin 0.1 mg/dl Aspartate Amino Transf (AST/SGOT) 21 IU/L Alanine Aminotransferase (ALT/SGPT) 31 IU/L Alkaline Phosphatase 113 IU/L Total Protein 7.4 g/dl Albumin 4.5 g/dl Globulin 2.90 g/dl Albumin/Globulin Ratio 1.55 Procedures/MDM Medical Decision Making: Differential diagnosis includes but not limited to ACS, PE, pericarditis, endocarditis, pneumonia, CHF. Patient appeared well on physical exam. Patient was redundant and appears to begum ve some psychiatric condition. EKG was NSR, no ST or T wave changes noted CXR was unremarkable CBC showed no anemia, no elevated WBC to suggest systemic infection CMP showed no electrolyte abnormalities, renal and liver function were normal glucose was 254 and a1c was 7.0 Patient advised that he will need to f/u with PCP for possible referral to cardiology if he continues to have pain. patient also advised to follow up with PCP for the elevated blood glucose and a1c level Patient advised to take OTC pain medications as needed. Patient advised to follow up with PCP in 1-2 days. Patient advised to return to ED for new or worsening symptoms. Patient stable on discharge from the ED. Disclaimer: Inadvertent spelling and grammatical errors are likely due to EHR/dictation software use and do not reflect on the overall quality of patient care. Also, please note that the electronic time recorded on this note does not necessarily reflect the actual time of the patient encounter. Departure Diagnosis: Primary Impression: Chest pain Condition: Fair Patient Instructions: Chest Pain, Uncertain Cause Referrals: [facility] YOU HAVE RECEIVED A MEDICAL SCREENING EXAM AND THE RESULTS INDICATE THAT YOU DO NOT HAVE A CONDITION THAT REQUIRES URGENT TREATMENT IN THE EMERGENCY DEPARTMENT. FURTHER EVALUATION AND TREATMENT OF YOUR CONDITION CAN WAIT UNTIL YOU ARE SEEN IN YOUR DOCTORS OFFICE WITHIN THE NEXT 1-2 DAYS. IT IS YOUR RESPONSIBILITY TO MAKE AN APPOINTMENT FOR FOLOW-UP CARE. IF YOU HAVE A PRIMARY DOCTOR --you should call your primary doctor and schedule an appointment IF YOU DO NOT HAVE A PRIMARY DOCTOR YOU CAN CALL OUR PHYSICIAN REFERRAL HOTLINE AT IF YOU CAN NOT AFFORD TO SEE A PHYSICIAN YOU CAN CHOSE FROM THE FOLLOWING [facility] [place] [address] [facility] [place] [address] [facility] [facility] [address] [facility] [address] [facility]. [facility] [address] [facility]. [facility]. [address] Additional Instructions: Call your primary care doctor TOMORROW for an appointment during the next 1-2 days.See the doctor sooner or return here if your condition worsens before your appointment time. ERIKA SORIANO DO Aug 16, 2018 21:04
[2018-09-15] MEDS ORDERED: ACYC400T2 PO (12:25)
== END 2018-08-16 18:18 | disposition home or self-care (01) ==
LOC: FTE 14:31
DX: R07.9 Chest pain, unspecified (principal); I10 Essential (primary) hypertension; E11.9 Type 2 diabetes mellitus without complications; J45.909 Unspecified asthma, uncomplicated; Z79.4 Long term (current) use of insulin
CPT/HCPCS: 71046; 80053; 83036; 85025; 93005; Z7502

== ENCOUNTER 2018-08-22 17:07 | Emergency (ER) | payer MEDICAID ==
[~2018-08-22] VITALS: Wt 122.2 kg
[2018-08-22 17:18] VITALS: BP 141/94; PULSE 107; RESP 19
--- NOTE | 2018-08-22 20:04 | ERD ---
ER Documentation Chief Complaint Chief Complaint bib self, cc: "I feel weak" seen by clinic today, given medication HPI This is a 33-year-old male who has psychiatric history. He denies any suicidal or homicidal ideations. He states he has been feeling weak. He went to his clinic today and I gave him prescription for metformin and glipizide which she has been taking but states he still does not feel good. No fever. No vomiting. No chest pain or palpitations. ROS All systems reviewed and are negative except as per history of present illness. Medications Home Meds Active Scripts Albuterol Sulfate* (Proair HFA*) 8.5 Gm Hfa.aer.ad, 2 PUFF INH Q4, #1 INHALER Prov:FEDERICO MORRIS PA-C 11/09/17 Hydrocortisone* Topical (Hydrocortisone* Topical) 2.5%-28.3 Gm Cream..g., 1 APPLIC TOP BID, #1 TUB Prov:JENNIFER GODOY PA-C 10/17/17 Clotrimazole* (Clotrimazole* AF) 1% - 30 Gm Cream.gm., 1 APPLIC TOP BID for 7 Days, #1 TUB Prov:JENNIFER GODOY PA-C 10/17/17 Phenazopyridine Hcl* (Pyridium*) 200 Mg Tab, 200 MG PO TID PRN for URINARY PAIN, #6 TAB Prov:LOVE ROMERO MD 09/05/17 Benzonatate* (Tessalon Perle*) 100 Mg Capsule, 100 MG PO Q8H PRN for COUGH, #20 CAP Prov:JERRY INGRAM PA-C 06/11/17 Clotrimazole* (Clotrimazole* AF) 1% - 30 Gm Cream.gm., 1 APPLIC TOP BID for 10 Days, TUB Prov:NICHOLE GUADALUPE MD 04/26/17 Metformin* (Glucophage*) 500 Mg Tab, 500 MG PO BID, #60 TAB Prov:NICHOLE GUADALUPE MD 04/26/17 Prednisone* (Prednisone*) 20 Mg Tab, 40 MG PO DAILY for 4 Days, TAB Prov:WADE MOODY PA-C 04/20/17 Albuterol Sulfate* (Proair HFA*) 8.5 Gm Hfa.aer.ad, 2 PUFF INH Q4, #1 INHALER Prov:WADE MOODY PA-C 04/20/17 Reported Medications Insulin Glargine* (Lantus*) 100 Unit/Ml Soln, 20 UNIT SC QHS, #1 VIAL 04/15/17 Divalproex Sodium* (Depakote*) 500 Mg Tablet.dr, 500 MG PO TID, #90 TAB 04/15/17 Losartan Potassium* (Losartan Potassium*) 100 Mg Tablet, 100 MG PO DAILY PRN for NEEDED, TAB 04/15/17 Glipizide* (Glipizide*) 5 Mg Tablet, 5 MG PO AC BREAKFAST DINNER PRN for NEEDED, TAB NOT REGULARLY 04/15/17 Metformin* (Glucophage*) 1,000 Mg Tablet, 1000 MG PO BID, #60 TAB 01/04/16 Allergies Allergies: Coded Allergies: No Known Allergies (Verified Allergy, Mild, 04/15/17) PMhx/Soc History of Surgery: No Anesthesia Reaction: No Hx Neurological Disorder: No Hx Respiratory Disorders: Yes (asthma) Hx Cardiac Disorders: Yes (HTN) Hx Psychiatric Problems: Yes (schizophrenia, bipolar) Hx Miscellaneous Medical Probl: Yes (DM) Hx Alcohol Use: No Hx Substance Use: No Hx Tobacco Use: No Smoking Status: Never smoker FmHx Family History: diabetes Physical Exam Vitals Vital Signs Date Temp Pulse Resp B/P (MAP) Pulse Ox O2 O2 Flow FiO2 Time Delivery Rate 08/22/18 98.3 107 19 141/94 100 17:18 (110) Physical Exam INITIAL VITAL SIGNS: Reviewed by me GENERAL: Awake, alert and oriented x 4, well appearing, nontoxic, speaking in full sentences. No acute distress HEAD: Atraumatic NECK: Supple. No masses. Full range of motion. No meningismus. No midline tenderness. EYES: EOMI. PERRL. RESPIRATORY: Clear to auscultation bilaterally. Symmetric chest wall rise. No wheezing or rales. No accessory muscle use. CV: Regular rate and rhythm. No murmurs, rubs, or gallops. ABDOMEN: Soft, non-distended. Nontender. Negative [place]. Negative McBurneys point tenderness. No CVA tenderness bilaterally. No guarding. No rebound. Result Diagram: 08/22/18192008/22/181920 Results 24 hrs Laboratory Tests Test 08/22/18 19:21 White Blood Count 7.9 10^3/ul Red Blood Count 5.52 10^6/ul Hemoglobin 15.3 g/dl Hematocrit 47.0 % Mean Corpuscular Volume 85.1 fl Mean Corpuscular Hemoglobin 27.7 pg Mean Corpuscular Hemoglobin Concent 32.6 g/dl Red Cell Distribution Width 12.5 % Platelet Count 209 10^3/UL Mean Platelet Volume 10.7 fl Immature Granulocytes % 0.300 % Neutrophils % 58.4 % Lymphocytes % 33.2 % Monocytes % 6.2 % Eosinophils % 1.6 % Basophils % 0.3 % Nucleated Red Blood Cells % 0.0 /100WBC Immature Granulocytes # 0.020 10^3/ul Neutrophils # 4.6 10^3/ul Lymphocytes # 2.6 10^3/ul Monocytes # 0.5 10^3/ul Eosinophils # 0.1 10^3/ul Basophils # 0.0 10^3/ul Nucleated Red Blood Cells # 0.0 10^3/ul Urine Color STRAW Urine Clarity CLEAR Urine pH 6.0 Urine Specific [place] 1.006 Urine Ketones NEGATIVE mg/dL Urine Nitrite NEGATIVE mg/dL Urine Bilirubin NEGATIVE mg/dL Urine Urobilinogen 1+ mg/dL Urine Leukocyte Esterase NEGATIVE [place]/ul Urine Hemoglobin NEGATIVE mg/dL Urine Glucose 1+ mg/dL Urine Total Protein NEGATIVE mg/dl Sodium Level 140 mmol/L Potassium Level 3.8 mmol/L Chloride Level 97 mmol/L Carbon Dioxide Level 31 mmol/L Anion Gap 12 Blood Urea Nitrogen 12 mg/dl Creatinine 0.68 mg/dl Est Glomerular Filtrat Rate mL/min > 60 mL/min Glucose Level 228 mg/dl Calcium Level 9.8 mg/dl Total Bilirubin 0.6 mg/dl Direct Bilirubin 0.00 mg/dl Indirect Bilirubin 0.6 mg/dl Aspartate Amino Transf (AST/SGOT) 27 IU/L Alanine Aminotransferase (ALT/SGPT) 44 IU/L Alkaline Phosphatase 87 IU/L Total Protein 8.5 g/dl Albumin 4.8 g/dl Globulin 3.70 g/dl Albumin/Globulin Ratio 1.29 Procedures/MDM Patient presents with hyperglycemia however there is no evidence of DKA. Patient was given prescription for Motrin per his request and a dose of Motrin h ere. Patient counseled regarding my diagnostic impression and care plan. Prior to discharge all questions answered. Pt agrees with treatment plan and understands strict return precautions. Pt is instructed to follow up with primary care provider within 24-48 hours. Precautionary instructions provided including instructions to return to the ER if not improving or for any worsening or changing symptoms or concerns. Departure Diagnosis: Primary Impression: Psychiatric illness Additional Impression: Hyperglycemia Condition: Stable Patient Instructions: Hyperglycemia (High Blood Sugar) Additional Instructions: Call your primary care doctor TOMORROW for an appointment during the next 1-2 days.See the doctor sooner or return here if your condition worsens before your appointment time. JERRY INGRAM PA-C Aug 22, 2018 20:04
[2018-08-22] MEDS ORDERED: IBUP-1542 PO (20:05)
[2018-08-22] MEDS ORDERED: IBUPROFEN 600 MG TAB PO ONE (20:30)
[2018-09-15] MEDS ORDERED: ACYC400T2 PO (12:25)
== END 2018-08-22 20:12 | disposition home or self-care (01) ==
LOC: FTE 17:07
DX: F99 Mental disorder, not otherwise specified (principal); E11.65 Type 2 diabetes mellitus with hyperglycemia; I10 Essential (primary) hypertension; J45.909 Unspecified asthma, uncomplicated; Z79.4 Long term (current) use of insulin
CPT/HCPCS: 36415; 80053; 81003; 85025; Z7502; Z7610; 99283

== ENCOUNTER 2018-10-12 19:39 | Emergency (ER) | payer OTHER ==
[~2018-10-12] VITALS: Ht 177.8 cm; Wt 134.3 kg
[~2018-10-12 19:39] MED LIST changes: +ACYC400T2 PO; +IBUP-1542 PO
[2018-10-12 20:11] VITALS: Ht 177.8 cm; Wt 134.3 kg
[2018-10-12 21:47] VITALS: BP 142/62; PULSE 84; RESP 16
[2018-10-12] MEDS ORDERED: GUAIFENESIN/CODEINE 5ML CUP PO ONE (23:30)
--- NOTE | 2018-10-12 23:32 | ERD ---
ER Documentation Chief Complaint Chief Complaint cough x2 days. +headache today. +CP HPI This is a 33-year-old male presents to emerge department with complaints of cough, frontal headache for about 2 days. Also complains of mild chest pain that is on and off. Denies headache, head injury, loss of consciousness, dizziness, neck pain, neck stiffness, throat pain, difficulty swallowing, difficulty breathing lying flat, shoulder pain, chest pain, back pain, abdominal pain, nausea, vomiting, constipation, diarrhea, urinary symptoms, loss of bowel and bladder control, t rauma, injury, falls, difficulty walking due to pain, numbness or tingling sensation, calf pain, recent travel, recent major surgery in the last 3 weeks, calf pain, recent long travel, recent exposure to any illness, recent antibiotic use in the last 3 months, fever, chills, seizures. Past medical history: Surgical history: Social: Denies smoking, use of alcoholic beverages, use of illegal drugs. ROS All systems reviewed and are negative except as per history of present illness. Medications Home Meds Active Scripts Benzonatate* (Tessalon Perle*) 100 Mg Capsule, 100 MG PO Q8H PRN for COUGH, #15 CAP Prov:TONE SOLANO 10/12/18 Acyclovir* (Acyclovir*) 400 Mg Tablet, 400 MG PO TID for 10 Days, TAB Prov:MURPHY MAIER MD 09/15/18 Ibuprofen* (Motrin*) 600 Mg Tab, 600 MG PO Q6H PRN for PAIN AND OR ELEVATED TEMP, #30 TAB Prov:JERRY INGRAM PA-C 08/22/18 Albuterol Sulfate* (Proair HFA*) 8.5 Gm Hfa.aer.ad, 2 PUFF INH Q4, #1 INHALER Prov:FEDERICO MORRIS PA-C 11/09/17 Hydrocortisone* Topical (Hydrocortisone* Topical) 2.5%-28.3 Gm Cream..g., 1 APPLIC TOP BID, #1 TUB Prov:JENNIFER GODOY PA-C 10/17/17 Clotrimazole* (Clotrimazole* AF) 1% - 30 Gm Cream.gm., 1 APPLIC TOP BID for 7 Days, #1 TUB Prov:JENNIFER GODOY PA-C 10/17/17 Phenazopyridine Hcl* (Pyridium*) 200 Mg Tab, 200 MG PO TID PRN for URINARY PAIN, #6 TAB Prov:LOVE ROMERO MD 09/05/17 Benzonatate* (Tessalon Perle*) 100 Mg Capsule, 100 MG PO Q8H PRN for COUGH, #20 CAP Prov:JERRY INGRAM PA-C 06/11/17 Clotrimazole* (Clotrimazole* AF) 1% - 30 Gm Cream.gm., 1 APPLIC TOP BID for 10 Days, TUB Prov:NICHOLE GUADALUPE MD 04/26/17 Metformin* (Glucophage*) 500 Mg Tab, 500 MG PO BID, #60 TAB Prov:NICHOLE GUADALUPE MD 04/26/17 Prednisone* (Prednisone*) 20 Mg Tab, 40 MG PO DAILY for 4 Days, TAB Prov:WADE MOODY PA-C 04/20/17 Albuterol Sulfate* (Proair HFA*) 8.5 Gm Hfa.aer.ad, 2 PUFF INH Q4, #1 INHALER Prov:WADE MOODY PA-C 04/20/17 Reported Medications Insulin Glargine* (Lantus*) 100 Unit/Ml Soln, 20 UNIT SC QHS, #1 VIAL 04/15/17 Divalproex Sodium* (Depakote*) 500 Mg Tablet.dr, 500 MG PO TID, #90 TAB 04/15/17 Losartan Potassium* (Losartan Potassium*) 100 Mg Tablet, 100 MG PO DAILY PRN for NEEDED, TAB 04/15/17 Glipizide* (Glipizide*) 5 Mg Tablet, 5 MG PO AC BREAKFAST DINNER PRN for NEEDED, TAB NOT REGULARLY 04/15/17 Metformin* (Glucophage*) 1,000 Mg Tablet, 1000 MG PO BID, #60 TAB 01/04/16 Allergies Allergies: Coded Allergies: No Known Allergies (Verified Allergy, Mild, 04/15/17) PMhx/Soc History of Surgery: No Anesthesia Reaction: No Hx Neurological Disorder: No Hx Respiratory Disorders: Yes (ASTHMA) Hx Cardiac Disorders: No Hx Psychiatric Problems: No Hx Miscellaneous Medical Probl: Yes (DM) Hx Alcohol Use: No Hx Substance Use: Yes (hx,sober x 4 yrs) Hx Tobacco Use: No Physical Exam Vitals Physical Exam Const: No acute distress Head: Atraumatic Eyes: Normal Conjunctiva ENT: Normal External Ears, Nose and Mouth. Neck: Full range of motion. No meningismus. Resp: Clear to auscultation bilaterally Cardio: Regular rate and rhythm, no murmurs Abd: Soft, non tender, non distended. Normal bowel sounds Skin: No petechiae or rashes Back: No midline or flank tenderness Ext: No cyanosis, or edema Neur: Awake and alert Psych: Normal Mood and Affect Results 24 hrs Current Medications Medications Dose Sig/Apryl Start Time Status Last (Trade) Ordered Route PRN Stop Time Admin Dose Reason Admin 5 ml ONCE ONCE 10/12/18 DC 10/12/18 Guaifenesin/ PO 23:30 10/12/18 23:30 Codeine 23:31 Phosphate (Robitussin Ac Liquid Cup) Procedures/MDM Diagnostic tests: EKG: Sinus tachycardia with a ventricular rate of 106 bpm. No STEMI. Read by supervising physician. Treatment: Patient is insisting to be given Robitussin p.o. Re-evaluation: Denies headache, neck pain, chest pain. No neurological deficit. Stated that he feels much better at this time and that he is ready to go home. Differential diagnosis I have low suspicion for sepsis, fevers respiratory infection, cystitis, meningitis, peritonsillar abscess, pneumonia, acute myocardial infarction, acute coronary syndrome, pneumothorax, hemothorax, punctured lungs. Final diagnosis: Cough. Bronchitis that is viral in origin. Prescription: Tessalon Perles. Follow-up with PCP in the next 24-48 hours. Come back here in the emergency department for any new symptoms or any worsening symptoms. All questions and concerns were answered. Patient and family members verbalized understanding and agreed with plan of care. Hemodynamically stable on discharge. Departure Diagnosis: Primary Impression: Viral bronchitis Condition: Stable Additional Instructions: Follow-up with PCP in the next 24-48 hours. Come back here in the emergency department for any new symptoms or any worsening symptoms. TONE SOLANO Oct 12, 2018 23:32
[2018-10-12] MEDS ORDERED: BENZ-6 PO (23:35)
== END 2018-10-13 00:03 | disposition home or self-care (01) ==
LOC: FTE 19:39
DX: J20.8 Acute bronchitis due to other specified organisms (principal); E11.9 Type 2 diabetes mellitus without complications; J45.909 Unspecified asthma, uncomplicated; R07.9 Chest pain, unspecified; Z79.4 Long term (current) use of insulin
CPT/HCPCS: 93005; Z7502; Z7610

== ENCOUNTER 2018-10-29 09:57 | Emergency (ER) | payer OTHER ==
[~2018-10-29] VITALS: Ht 172.7 cm; Wt 131.8 kg
[2018-10-29 10:01] VITALS: Ht 172.7 cm; Wt 131.8 kg
--- NOTE | 2018-10-29 11:18 | ERD ---
ER Documentation Chief Complaint Chief Complaint CHEST PAIN X1DAY UNPROVOKED, NONRADIATING HPI The patient is a 33-year-old male, presenting to the ER because of intermittent left-sided chest pain that began yesterday, intermittently, recurs around 9 AM this morning. He denies similar symptoms previously, denies chest pain with ra diation/exertion/diaphoresis/vomiting, dyspnea, abdominal pain, vomiting, dysuria, diarrhea. He was seen repeatedly on October 12, 2018 for cough with [facility], and again at the [facility] on October 16 and October 21, 2018. He denies smoking or drinking or using any illicit drug Past medical history: Diabetes mellitus, hypertension, asthma, schizophrenia Past surgical history: None ROS All systems reviewed and are negative except as per history of present illness. Medications Home Meds Active Scripts Ibuprofen* (Motrin*) 600 Mg Tab, 600 MG PO Q6H PRN for PAIN AND OR ELEVATED TEMP, #30 TAB Prov:JERRY INGRAM PA-C 08/22/18 Hydrocortisone* Topical (Hydrocortisone* Topical) 2.5%-28.3 Gm Cream..g., 1 APPLIC TOP BID, #1 TUB Prov:JENNIFER GODOY PA-C 10/17/17 Clotrimazole* (Clotrimazole* AF) 1% - 30 Gm Cream.gm., 1 APPLIC TOP BID for 7 Days, #1 TUB Prov:JENNIFER GODOY PA-C 10/17/17 Phenazopyridine Hcl* (Pyridium*) 200 Mg Tab, 200 MG PO TID PRN for URINARY PAIN, #6 TAB Prov:LOVE ROMERO MD 09/05/17 Benzonatate* (Tessalon Perle*) 100 Mg Capsule, 100 MG PO Q8H PRN for COUGH, #20 CAP Prov:JERRY INGRAM PA-C 06/11/17 Clotrimazole* (Clotrimazole* AF) 1% - 30 Gm Cream.gm., 1 APPLIC TOP BID for 10 Days, TUB Prov:NICHOLE GUADALUPE MD 04/26/17 Albuterol Sulfate* (Proair HFA*) 8.5 Gm Hfa.aer.ad, 2 PUFF INH Q4, #1 INHALER Prov:WADE MOODY PA-C 04/20/17 Reported Medications Guaifenesin-Dextromethorphan* (Robitussin* DM) 100MG/10MG/5ML Syrup, 10 ML PO Q6H PRN for COUGH, ML 10/29/18 Benztropine Mesylate* (Benztropine Mesylate*) 1 Mg Tablet, 1 MG PO DAILY, TAB 10/29/18 Risperidone* (Risperidone*) 2 Mg Tablet, 2 MG PO DAILY, TAB 10/29/18 Fluticasone Propionate* (Flovent* HFA 220) 12 Gm Inha, 2 PUFF INHALATION BID, #1 INHALER 10/29/18 Metformin* (Glucophage*) 500 Mg Tab, 1000 MG PO WITH BREAKFAST DINNE, #30 TAB 10/29/18 Glipizide* (Glipizide*) 10 Mg Tablet, 10 MG PO AC BREAKFAST, TAB 10/29/18 Insulin Glargine* (Lantus*) 100 Unit/Ml Soln, 20 UNIT SC QHS, #1 VIAL 04/15/17 Losartan Potassium* (Losartan Potassium*) 100 Mg Tablet, 100 MG PO DAILY PRN for NEEDED, TAB 04/15/17 Discontinued Reported Medications Divalproex Sodium* (Depakote*) 500 Mg Tablet.dr, 500 MG PO TID, #90 TAB 04/15/17 Glipizide* (Glipizide*) 5 Mg Tablet, 5 MG PO AC BREAKFAST DINNER PRN for NEEDED, TAB NOT REGULARLY 04/15/17 Metformin* (Glucophage*) 1,000 Mg Tablet, 1000 MG PO BID, #60 TAB 01/04/16 Discontinued Scripts Benzonatate* (Tessalon Perle*) 100 Mg Capsule, 100 MG PO Q8H PRN for COUGH, #15 CAP Prov:TONE SOLANO 10/12/18 Acyclovir* (Acyclovir*) 400 Mg Tablet, 400 MG PO TID for 10 Days, TAB Prov:MURPHY MAIER MD 09/15/18 Albuterol Sulfate* (Proair HFA*) 8.5 Gm Hfa.aer.ad, 2 PUFF INH Q4, #1 INHALER Prov:FEDERICO MORRIS PAKeyana 11/09/17 Metformin* (Glucophage*) 500 Mg Tab, 500 MG PO BID, #60 TAB Prov:TEEHEE,NICHOLE N. MD 04/26/17 Prednisone* (Prednisone*) 20 Mg Tab, 40 MG PO DAILY for 4 Days, TAB Prov:WADE MOODY PA-C 04/20/17 Allergies Allergies: Coded Allergies: No Known Allergies (Verified Allergy, Mild, 04/15/17) PMhx/Soc History of Surgery: No Anesthesia Reaction: No Hx Neurological Disorder: No Hx Respiratory Disorders: Yes (ASTHMA) Hx Cardiac Disorders: No Hx Psychiatric Problems: No Hx Miscellaneous Medical Probl: Yes (DM) Hx Alcohol Use: No Hx Substance Use: Yes (hx,sober x 4 yrs) Hx Tobacco Use: No Smoking Status: Never smoker Physical Exam Vitals Vital Signs Date Temp Pulse Resp B/P (MAP) Pulse Ox O2 O2 Flow FiO2 Time Delivery Rate 10/29/18 98.7 128 18 150/70 96 10:01 (96) Physical Exam Const: No acute distress. Head: Atraumatic. Eyes: Normal Conjunctiva. ENT: Normal External Ears, Nose and Mouth. Neck: Full range of motion. No meningismus. Resp: Clear to auscultation bilaterally. Cardio: Regular rate and rhythm. Abd: Soft, non distended, normal bowel sounds, non tender. Skin: No petechiae or rashes. Back: No midline or flank tenderness. Ext: No cyanosis, or edema. Neur: Awake and alert. No focal deficit Psych: Normal Mood and Affect. Result Diagram: 10/29/18 1245 10/29/18 1200 Results 24 hrs Laboratory Tests Test 10/29/18 12:00 10/29/18 12:32 10/29/18 12:45 Sodium Level 137 mmol/L Potassium Level 4.8 mmol/L Chloride Level 103 mmol/L Carbon Dioxide Level 24 mmol/L Anion Gap 10 Blood Urea Nitrogen 17 mg/dl Creatinine 0.59 mg/dl Est Glomerular Filtrat > 60 mL/min Rate mL/min Glucose Level 251 mg/dl Calcium Level 9.5 mg/dl Troponin I < 0.012 ng/ml Urine Opiates Screen Negative Urine Barbiturates Negative Urine Amphetamines Screen Negative Urine Benzodiazepines Screen Negative Urine Cocaine Screen Negative Urine Cannabinoids Negative White Blood Count 8.5 10^3/ul Red Blood Count 5.62 10^6/ul Hemoglobin 15.3 g/dl Hematocrit 46.9 % Mean Corpuscular Volume 83.5 fl Mean Corpuscular Hemoglobin 27.2 pg Mean Corpuscular 32.6 g/dl Hemoglobin Concent Red Cell Distribution Width 12.5 % Platelet Count 187 10^3/UL Mean Platelet Volume 10.4 fl Immature Granulocytes % 0.400 % Neutrophils % 59.9 % Lymphocytes % 32.2 % Monocytes % 4.9 % Eosinophils % 2.2 % Basophils % 0.4 % Nucleated Red Blood Cells % 0.0 /100WBC Immature Granulocytes # 0.030 10^3/ul Neutrophils # 5.1 10^3/ul Lymphocytes # 2.8 10^3/ul Monocytes # 0.4 10^3/ul Eosinophils # 0.2 10^3/ul Basophils # 0.0 10^3/ul Nucleated Red Blood Cells # 0.0 10^3/ul Current Medications Medications Dose Sig/Apryl Start Time Status Last (Trade) Ordered Route PRN Stop Time Admin Dose Reason Admin Ketorolac 30 mg ONCE STAT 10/29/18 DC Tromethamine IV 11:34 (Toradol) 10/29/18 11:36 Procedures/MDM EKG: Read by emergency physician Rate/Rhythm: Sinus tachycardia 116 beats/min QRS, ST, T-waves: No ST elevation, no T inversion Impression: Abnormal EKG MEDICAL MAKING DECISION: The patient is a 33-year-old male, presenting with ac [place] chest pain of unclear etiology,most likely musculoskeletal in origin, was treated with Toradol 30 mg IV for pain with good response, is stable for outpatient follow-up The differential diagnoses considered include but are not limited to acute coronary syndrome, acute myocardial infarction, pericarditis, pulmonary embolism, aortic dissection, pneumonia, pleural effusion, pneumothorax, GERD, ch est wall pain. Departure Diagnosis: Primary Impression: Chest pain Condition: Good Comments I discussed the findings with the patient. I advised the patient to follow-up with the primary physician in about 2-3 days, sooner if needed and return if any concern. Disclaimer: Inadvertent spelling and grammatical errors are likely due to EHR/dictation software use and do not reflect on the overall quality of patient care. Also, please note that the electronic time recorded on this note does not necessarily reflect the actual time of the patient encounter. ERIKA CHAMPAGNE MD Oct 29, 2018 11:18
[2018-10-29] MEDS ORDERED: KETOROLAC 30 MG INJ IV STA (11:34)
[2018-10-29] MEDS ORDERED: GLIP10TA14 PO (11:45)
[2018-10-29] MEDS ORDERED: METF-849 PO (11:46)
[2018-10-29] MEDS ORDERED: FLOV220 INHALATION (11:47)
[2018-10-29] MEDS ORDERED: RISP2TAB3 PO (11:48)
[2018-10-29] MEDS ORDERED: GUAI5SYR2 PO (11:48)
[2018-10-29] MEDS ORDERED: BENZ1TAB7 PO (11:48)
[2018-10-29 13:16] VITALS: BP 134/82; PULSE 90; RESP 17
== END 2018-10-29 13:39 | disposition home or self-care (01) ==
LOC: E/R 09:57
DX: R07.9 Chest pain, unspecified (principal); I10 Essential (primary) hypertension; E11.9 Type 2 diabetes mellitus without complications; J45.909 Unspecified asthma, uncomplicated; Z79.4 Long term (current) use of insulin
CPT/HCPCS: 36415; 71045; 80048; 80307; 82550; 82553; 84484; 85025; 93005; 96374; J1885; Z7502

== ENCOUNTER 2018-12-01 14:17 | Emergency (ER) | payer OTHER ==
[~2018-12-01] VITALS: Ht 175.3 cm; Wt 133.1 kg
[~2018-12-01 14:17] MED LIST changes: -ACYC400T2 PO; +BENZ1TAB7 PO; -DIVA-48 PO; +FLOV220 INHALATION; +GLIP10TA14 PO; -GLIP5TAB13 PO; +GUAI5SYR2 PO; -MTF1000T PO; -PRED20TA PO; +RISP2TAB3 PO
[2018-12-01 14:27] VITALS: BP 160/83; PULSE 90; RESP 18; Ht 175.3 cm; Wt 133.1 kg
[2018-12-01] MEDS ORDERED: BENZ-6 PO (15:00)
--- NOTE | 2018-12-01 16:21 | ERD ---
ER Documentation Chief Complaint Chief Complaint Wants med refill for cough medication HPI Patient is a 33-year-old male with diabetes who presents with a cough. The patient has had a cough for 1 month. He denies fevers. He wants another prescription for Tessalon. He has run out recently. Upon review of old medical records the patient has multiple visits to the ER for various complaints. He said that his primary doctor is at [facility]. ROS All systems reviewed and are negative except as per history of present illness. Medications Home Meds Active Scripts Benzonatate* (Tessalon Perle*) 100 Mg Capsule, 100 MG PO Q8H PRN for COUGH, #30 CAP Prov:LOVE ROMERO MD 12/01/18 Ibuprofen* (Motrin*) 600 Mg Tab, 600 MG PO Q6H PRN for PAIN AND OR ELEVATED TEMP, #30 TAB Prov:JERRY INGRAM PA-C 08/22/18 Hydrocortisone* Topical (Hydrocortisone* Topical) 2.5%-28.3 Gm Cream..g., 1 APPLIC TOP BID, #1 TUB Prov:JENNIFER GODOY PA-C 10/17/17 Clotrimazole* (Clotrimazole* AF) 1% - 30 Gm Cream.gm., 1 APPLIC TOP BID for 7 Days, #1 TUB Prov:JENNIFER GODOY PA-C 10/17/17 Phenazopyridine Hcl* (Pyridium*) 200 Mg Tab, 200 MG PO TID PRN for URINARY PAIN, #6 TAB Prov:LOVE ROMERO MD 09/05/17 Benzonatate* (Tessalon Perle*) 100 Mg Capsule, 100 MG PO Q8H PRN for COUGH, #20 CAP Prov:JERRY INGRAM PA-C 06/11/17 Clotrimazole* (Clotrimazole* AF) 1% - 30 Gm Cream.gm., 1 APPLIC TOP BID for 10 Days, TUB Prov:NICHOLE GUADALUPE MD 04/26/17 Albuterol Sulfate* (Proair HFA*) 8.5 Gm Hfa.aer.ad, 2 PUFF INH Q4, #1 INHALER Prov:WAED MOODY PA-C 04/20/17 Reported Medications Guaifenesin-Dextromethorphan* (Robitussin* DM) 100MG/10MG/5ML Syrup, 10 ML PO Q6H PRN for COUGH, ML 10/29/18 Benztropine Mesylate* (Benztropine Mesylate*) 1 Mg Tablet, 1 MG PO DAILY, TAB 10/29/18 Risperidone* (Risperidone*) 2 Mg Tablet, 2 MG PO DAILY, TAB 10/29/18 Fluticasone Propionate* (Flovent* HFA 220) 12 Gm Inha, 2 PUFF INHALATION BID, #1 INHALER 10/29/18 Metformin* (Glucophage*) 500 Mg Tab, 1000 MG PO WITH BREAKFAST DINNE, #30 TAB 10/29/18 Glipizide* (Glipizide*) 10 Mg Tablet, 10 MG PO AC BREAKFAST, TAB 10/29/18 Insulin Glargine* (Lantus*) 100 Unit/Ml Soln, 20 UNIT SC QHS, #1 VIAL 04/15/17 Losartan Potassium* (Losartan Potassium*) 100 Mg Tablet, 100 MG PO DAILY PRN for NEEDED, TAB 04/15/17 Allergies Allergies: Coded Allergies: No Known Allergies (Verified Allergy, Mild, 04/15/17) PMhx/Soc History of Surgery: No Anesthesia Reaction: No Hx Neurological Disorder: No Hx Respiratory Disorders: Yes (ASTHMA) Hx Cardiac Disorders: No Hx Psychiatric Problems: No Hx Miscellaneous Medical Probl: Yes (DM) Hx Alcohol Use: No Hx Substance Use: Yes (hx,sober x 4 yrs) Hx Tobacco Use: No Smoking Status: Unknown if ever smoked FmHx Family History: diabetes Physical Exam Vitals Vital Signs Date Temp Pulse Resp B/P (MAP) Pulse Ox O2 O2 Flow FiO2 Time Delivery Rate 12/01/18 98.2 90 18 160/83 97 14:27 (108) Physical Exam Const: No acute distress Head: Atraumatic Eyes: Normal Conjunctiva ENT: Normal External Ears, Nose and Mouth. Neck: Full range of motion. No meningismus. Resp: Clear to auscultation bilaterally Cardio: Regular rate and rhythm, no murmurs Abd: Soft, non tender, non distended. Normal bowel sounds Skin: No petechiae or rashes Back: No midline or flank tenderness Ext: No cyanosis, or edema Neur: Awake and alert Psych: Normal Mood and Affect Procedures/MDM Patient is a 33-year-old male who presents with cough. He is well-appearing without respiratory distress. He has no fevers. I will give him a prescription for Tessalon. He can return for any worsening symptoms. He should follow-up with his primary doctor within 1 week. Departure Diagnosis: Primary Impression: Cough Additional Impression: Encounter for medication refill Condition: Fair Patient Instructions: Cough, Chronic, Uncertain Cause, (Adult) Additional Instructions: Call your primary care doctor TOMORROW for an appointment during the next 1 WEEK.Tell the physician office secretary that you were referred from this facility.See the doctor sooner or return here if your condition worsens before your appointment time. LOVE ROMERO MD Dec 01, 2018 16:20
== END 2018-12-01 15:36 | disposition home or self-care (01) ==
LOC: E/R 14:17
DX: Z76.0 Encounter for issue of repeat prescription (principal); E11.9 Type 2 diabetes mellitus without complications; R05 Cough; Z79.4 Long term (current) use of insulin
CPT/HCPCS: 99281

== ENCOUNTER 2019-02-09 06:24 | Emergency (ER) | payer OTHER ==
[~2019-02-09] VITALS: Ht 177.8 cm; Wt 130.2 kg
[2019-02-09 06:34] VITALS: BP 140/78; PULSE 101; RESP 18; Ht 177.8 cm; Wt 130.2 kg
[2019-02-09] MEDS ORDERED: CLOT30CR24 TOP (07:00)
[2019-02-09] MEDS ORDERED: FLUC150T PO (07:00)
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
== END 2019-02-09 07:33 | disposition home or self-care (01) ==
LOC: FTE 06:24
DX: N48.1 Balanitis (principal); J45.909 Unspecified asthma, uncomplicated; E11.9 Type 2 diabetes mellitus without complications; Z79.4 Long term (current) use of insulin
CPT/HCPCS: 99283

== ENCOUNTER 2019-02-18 07:36 | Emergency (ER) | payer OTHER ==
[~2019-02-18] VITALS: Ht 177.8 cm; Wt 132.9 kg
[~2019-02-18 07:36] MED LIST changes: +FLUC150T PO
[2019-02-18 07:42] VITALS: BP 128/89; PULSE 78; RESP 17; Ht 177.8 cm; Wt 132.9 kg
[2019-02-18] MEDS ORDERED: ONDANSETRON (ODT) 4 MG TAB ODT STA (08:01)
[2019-02-18] MEDS ORDERED: ONDA4TAB14 PO (08:22)
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
== END 2019-02-18 08:36 | disposition home or self-care (01) ==
LOC: FTE 07:36
DX: R11.2 Nausea with vomiting, unspecified (principal); E11.9 Type 2 diabetes mellitus without complications; J45.909 Unspecified asthma, uncomplicated; Z79.4 Long term (current) use of insulin
CPT/HCPCS: 82962; Z7502; Z7610; 99283

== ENCOUNTER → 2019-03-08 | Emergency (ER) | payer OTHER ==
[~2019-03-08] VITALS: Ht 165.1 cm; Wt 100.0 kg
[~2019-03-08] MED LIST changes: +INSULIN REGULAR, HUMAN 100 UNIT/1 ML 3ML VIAL SC ONE; +NAPR-985 PO; +ONDA4TAB14 PO; +SOD CHLORIDE 0.9% 1,000 ML IV STA
[2019-03-08 10:08] VITALS: BP 150/78; PULSE 90; RESP 18; Ht 165.1 cm; Wt 100.0 kg
--- NOTE | 2019-03-08 12:20 | ERD ---
ER Documentation Chief Complaint Chief Complaint FEET PAIN HPI 33-year-old male presenting with bilateral foot pain. Patient is diabetic and feels that his nerves are irritated and on fire. He takes metformin. She has a primary doctor appointment later today. He denies any chest pain or shortness of breath. Patient is also complaining about penile pain however has a long history of this for the last 3 years and states that has been unchanged. ROS All systems reviewed and are negative except as per history of present illness. Medications Home Meds Active Scripts Naproxen* (Naprosyn*) 500 Mg Tablet, 500 MG PO BID PRN for PAIN AND/OR INFLAMMATION, #30 TAB Prov:HERSON SHINE PA-C 03/08/19 Ondansetron (Ondansetron Odt) 4 Mg Tab.rapdis, 4 MG PO Q6H PRN for NAUSEA AND/OR VOMITING, #10 TAB Prov:HERSON SHINE PA-C 02/18/19 Clotrimazole* (Clotrimazole* AF) 1% - 30 Gm Cream.gm., 1 APPLIC TOP BID for 7 Days, TUB Prov:LV GONSALEZ 02/09/19 Fluconazole* (Diflucan*) 150 Mg Tablet, 150 MG PO ONCE, #1 TAB Prov:LV GONSALEZ 02/09/19 Benzonatate* (Tessalon Perle*) 100 Mg Capsule, 100 MG PO Q8H PRN for COUGH, #30 CAP Prov:LOVE ROMERO MD 12/01/18 Ibuprofen* (Motrin*) 600 Mg Tab, 600 MG PO Q6H PRN for PAIN AND OR ELEVATED TEMP, #30 TAB Prov:JERRY INGRAM PA-C 08/22/18 Hydrocortisone* Topical (Hydrocortisone* Topical) 2.5%-28.3 Gm Cream..g., 1 APPLIC TOP BID, #1 TUB Prov:JENNIFER GODOY PA-C 10/17/17 Clotrimazole* (Clotrimazole* AF) 1% - 30 Gm Cream.gm., 1 APPLIC TOP BID for 7 Days, #1 TUB Prov:JENNIFER GODOY PA-C 10/17/17 Phenazopyridine Hcl* (Pyridium*) 200 Mg Tab, 200 MG PO TID PRN for URINARY PAIN, #6 TAB Prov:LOVE ROMERO MD 09/05/17 Benzonatate* (Tessalon Perle*) 100 Mg Capsule, 100 MG PO Q8H PRN for COUGH, #20 CAP Prov:JERRY INGRAM PA-C 06/11/17 Clotrimazole* (Clotrimazole* AF) 1% - 30 Gm Cream.gm., 1 APPLIC TOP BID for 10 Days, TUB Prov:NICHOLE GUADALUPE MD 04/26/17 Albuterol Sulfate* (Proair HFA*) 8.5 Gm Hfa.aer.ad, 2 PUFF INH Q4, #1 INHALER Prov:WADE MOODY PA-C 04/20/17 Reported Medications Guaifenesin-Dextromethorphan* (Robitussin* DM) 100MG/10MG/5ML Syrup, 10 ML PO Q6H PRN for COUGH, ML 10/29/18 Benztropine Mesylate* (Benztropine Mesylate*) 1 Mg Tablet, 1 MG PO DAILY, TAB 10/29/18 Risperidone* (Risperidone*) 2 Mg Tablet, 2 MG PO DAILY, TAB 10/29/18 Fluticasone Propionate* (Flovent* HFA 220) 12 Gm Inha, 2 PUFF INHALATION BID, #1 INHALER 10/29/18 Metformin* (Glucophage*) 500 Mg Tab, 1000 MG PO WITH BREAKFAST DINNE, #30 TAB 10/29/18 Glipizide* (Glipizide*) 10 Mg Tablet, 10 MG PO AC BREAKFAST, TAB 10/29/18 Insulin Glargine* (Lantus*) 100 Unit/Ml Soln, 20 UNIT SC QHS, #1 VIAL 04/15/17 Losartan Potassium* (Losartan Potassium*) 100 Mg Tablet, 100 MG PO DAILY PRN for NEEDED, TAB 04/15/17 Allergies Allergies: Coded Allergies: No Known Allergies (Verified Allergy, Mild, 02/09/19) PMhx/Soc Medical and Surgical Hx: pt denies Medical Hx, pt denies Surgical Hx History of Surgery: No Anesthesia Reaction: No Hx Neurological Disorder: No Hx Respiratory Disorders: Yes (ASTHMA) Hx Cardiac Disorders: No Hx Psychiatric Problems: No Hx Miscellaneous Medical Probl: Yes (DM) Hx Alcohol Use: No Hx Substance Use: Yes (hx,sober x 4 yrs) Hx Tobacco Use: No Smoking Status: Never smoker FmHx Family History: No diabetes, No coronary disease, No other Physical Exam Vitals Vital Signs Date Temp Pulse Resp B/P (MAP) Pulse Ox O2 O2 Flow FiO2 Time Delivery Rate 03/08/19 97.8 90 18 150/78 99 10:08 (102) Physical Exam GENERAL: The patient is well-appearing, well-nourished, in no acute distress CHEST: Clear to auscultation bilaterally. There are no rales, wheezes or rhonchi. HEART: Regular rate and rhythm. No murmurs, clicks, rubs or gallops. EXTREMITIES: Equal pulses bilaterally. There is no peripheral clubbing, cyanosis or edema. No focal swelling or erythema. Full range of motion. Grossly neurovascularly intact. NEUROLOGIC: Alert and oriented. Cranial nerves II through XII intact. Motor strength in all 4 extremities with 5 out of 5 strength. Sensation grossly intact. Normal speech and gait. Babinski negative. DTR 2+ throughout. SKIN: There is no apparent rash or petechiae. The skin is warm and dry. Result Diagram: 03/08/19 1106 03/08/19 1106 Results 24 hrs Laboratory Tests Test 03/08/19 10:46 03/08/19 10:49 03/08/19 11:06 Bedside Glucose 492 mg/dL Bedside Urine pH (LAB) 5.5 Bedside Urine Protein (LAB) Negative Bedside Urine Glucose (UA) 0.50% Bedside Urine Ketones (LAB) Negative Bedside Urine Blood Negative Bedside Urine Nitrite (LAB) Negative Bedside Urine Leukocyte Esterase (L Negative White Blood Count 6.9 10^3/ul Red Blood Count 5.69 10^6/ul Hemoglobin 15.5 g/dl Hematocrit 48.2 % Mean Corpuscular Volume 84.7 fl Mean Corpuscular Hemoglobin 27.2 pg Mean Corpuscular Hemoglobin Concent 32.2 g/dl Red Cell Distribution Width 12.5 % Platelet Count 188 10^3/UL Mean Platelet Volume 11.2 fl Immature Granulocytes % 0.300 % Neutrophils % 66.0 % Lymphocytes % 23.1 % Monocytes % 6.8 % Eosinophils % 3.5 % Basophils % 0.3 % Nucleated Red Blood Cells % 0.0 /100WBC Immature Granulocytes # 0.020 10^3/ul Neutrophils # 4.5 10^3/ul Lymphocytes # 1.6 10^3/ul Monocytes # 0.5 10^3/ul Eosinophils # 0.2 10^3/ul Basophils # 0.0 10^3/ul Nucleated Red Blood Cells # 0.0 10^3/ul Sodium Level 135 mmol/L Potassium Level 4.7 mmol/L Chloride Level 99 mmol/L Carbon Dioxide Level 26 mmol/L Anion Gap 10 Blood Urea Nitrogen 16 mg/dl Creatinine 0.79 mg/dl Est Glomerular Filtrat Rate mL/min > 60 mL/min Glucose Level 482 mg/dl Calcium Level 9.7 mg/dl Total Bilirubin 0.4 mg/dl Direct Bilirubin 0.00 mg/dl Indirect Bilirubin 0.4 mg/dl Aspartate Amino Transf (AST/SGOT) 44 IU/L Alanine Aminotransferase (ALT/SGPT) 101 IU/L Alkaline Phosphatase 137 IU/L Total Protein 6.8 g/dl Albumin 4.5 g/dl Globulin 2.30 g/dl Albumin/Globulin Ratio 1.95 Current Medications Medications Dose Sig/Apryl Start Time Status Last (Trade) Ordered Route PRN Stop Time Admin Dose Reason Admin Sodium 1,000 ml @ Q1H STAT 03/08/19 DC 03/08/19 Chloride 1,000 mls/hr IV 10:49 03/08/19 11:04 11:48 Insulin 12 unit ONCE ONCE 03/08/19 DC 03/08/19 Human SC 11:00 03/08/19 11:03 Regular 11:01 (Humulin R) Procedures/MDM Course: 1 L normal saline and 12 units of insulin given in the ED. Patient's blood work does not show signs of DKA so patient will be discharged to follow-up with his primary as he needs to have closer follow-up for his hyperglycemia. MDM: 33-year-old male presenting with bilateral foot pain. Patient has findings consistent with neuropathy and I have low suspicion for acute fracture dislocation of his feet. I have low suspicion for infectious process. I have low suspicion for a DKA as patient has normal electrolyte is noted on blood work with no signs of acidotic gap. Patient is discharged with strict your precautions and recommended to follow-up immediately with primary to readdress his diabetes medications. Patient is told symptoms change or worsen to return immediately to the ER. All questions answered at discharge Departure Diagnosis: Primary Impression: Neuropathy Additional Impression: Hyperglycemia without ketosis Condition: Stable Patient Instructions: Hyperglycemia (High Blood Sugar), Neuropathy, Peripheral Referrals: [facility] YOU HAVE RECEIVED A MEDICAL SCREENING EXAM AND THE RESULTS INDICATE THAT YOU DO NOT HAVE A CONDITION THAT REQUIRES URGENT TREATMENT IN THE EMERGENCY DEPARTMENT. FURTHER EVALUATION AND TREATMENT OF YOUR CONDITION CAN WAIT UNTIL YOU ARE SEEN IN YOUR DOCTORS OFFICE WITHIN THE NEXT 1-2 DAYS. IT IS YOUR RESPONSIBILITY TO MAKE AN APPOINTMENT FOR FOLOW-UP CARE. IF YOU HAVE A PRIMARY DOCTOR --you should call your primary doctor and schedule an appointment IF YOU DO NOT HAVE A PRIMARY DOCTOR YOU CAN CALL OUR PHYSICIAN REFERRAL HOTLINE AT IF YOU CAN NOT AFFORD TO SEE A PHYSICIAN YOU CAN CHOSE FROM THE FOLLOWING [facility] [address] [facility]. [facility] [address] [facility] [facility] [address] [facility] [address] [facility]. [facility] [address] [facility] [facility] [address] Additional Instructions: FOLLOW UP WITH YOUR PRIMARY CARE PHYSICIAN TOMORROW.Return to this facility if you are not improving as expected. HERSON SHINE PA-C Mar 08, 2019 12:20
== END | disposition home or self-care (01) ==
LOC: FTE 10:07
DX: G62.9 Polyneuropathy, unspecified (principal); E11.65 Type 2 diabetes mellitus with hyperglycemia; J45.909 Unspecified asthma, uncomplicated; Z79.4 Long term (current) use of insulin
CPT/HCPCS: 80053; 81003; 82962; 85025; J1815; J7030; 36415; 96360; 96372

== ENCOUNTER 2019-03-26 03:48 | Emergency (ER) | payer OTHER ==
[~2019-03-26] VITALS: Ht 177.8 cm; Wt 131.8 kg
[~2019-03-26 03:48] MED LIST changes: -INSULIN REGULAR, HUMAN 100 UNIT/1 ML 3ML VIAL SC ONE; -SOD CHLORIDE 0.9% 1,000 ML IV STA
[2019-03-26 03:52] VITALS: BP 162/99; PULSE 104; RESP 18; Ht 177.8 cm; Wt 131.8 kg
[2019-03-26] MEDS ORDERED: FLUCONAZOLE 150 MG TAB PO ONE (04:30)
== END 2019-03-26 05:25 | disposition left against medical advice (07) ==
LOC: FTE 03:48
DX: N48.1 Balanitis (principal); B35.3 Tinea pedis; E11.9 Type 2 diabetes mellitus without complications; J45.909 Unspecified asthma, uncomplicated; Z79.4 Long term (current) use of insulin; Z76.0 Encounter for issue of repeat prescription
CPT/HCPCS: Z7502; Z7610; 99283